=== PATIENT | female | born 1945 | race Caucasian/White ===

== ENCOUNTER 2020-06-20 09:39 | Outpatient (CLI) | payer MEDICARE, SELFPAY ==
--- NOTE | ~2020-06-20 | MM_ITS ---
EXAMINATION: MM screening [facility] BI w tommy HISTORY: Screening mammogram TECHNIQUE: Craniocaudal and mediolateral oblique 3-D tomosynthesis images were obtained and synthetic 2-D images were generated. CAD analysis was submitted and interpreted. COMPARISON: 03/16/2019, 02/10/2018, 01/15/2017 bilateral digital screening mammogram examinations BREAST PARENCHYMAL COMPOSITION: The breasts are heterogeneously dense, which may obscure small masses . FINDINGS: There are scattered bilateral benign calcifications. There is no evidence of suspicious mas s, calcification, or architectural distortion to suggest malignancy in either breast. There has been no suspicious interval change. IMPRESSION: 1. No mammographic evidence of malignancy. 2. Recommend routine screening mammography in one year. BI-RADS Category 2: Benign finding(s). Reviewed, dictated and finalized at location A. 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
== END 2020-06-20 09:40 | disposition home or self-care (01) ==
LOC: ANHIMG 09:43
PROVIDERS: Family Provider Family Medicine; PCP Family Medicine; Visit Provider Family Medicine
DX: Z12.31 Encounter for screening mammogram for malignant neoplasm of breast (principal)
CPT/HCPCS: 77063; 77067

== ENCOUNTER 2020-11-24 11:37 | Outpatient (CLI) | payer MEDICARE, SELFPAY ==
--- NOTE | ~2020-11-24 | MMUS_ITS ---
EXAMINATION: MM diagnostic kim RT w tommy, US breast RT limited HISTORY: Palpable breast abnormality TECHNIQUE: Additional 3-D tomosynthesis images of the right breast were performed and synthetic 2-D i mages were generated. CAD analysis was submitted and interpreted. High resolution Limited right breas t ultrasound was performed. COMPARISON: Comparison to multiple prior studies sequentially, with oldest reviewed study dated 05/2014. BREAST PARENCHYMAL COMPOSITION: Breast composed of scattered areas of fibroglandular density. FINDINGS: MAMMOGRAPHIC FINDINGS: There are no suspicious masses, calcifications or architectural distortion in the right breast to sug gest malignancy. ULTRASOUND: Limited right breast ultrasound: Normal heterogeneous echotexture without focal solid or cystic mass. IMPRESSION: 1. No evidence for malignancy in the right breast. 2. Routine yearly screening mammogram and regular clinical breast examination are recommended. BI-RADS Category 1: Negative Reviewed, dictated and finalized at location A. IMPRESSION: 1. No evidence for malignancy in the right breast. 2. Routine yearly screening mammogram and regular clinical breast examination a re recommended. BI-RADS Category 1: Negative
== END 2020-11-24 11:38 | disposition home or self-care (01) ==
LOC: ANHIMG 11:41
PROVIDERS: PCP Family Medicine; Visit Provider Family Medicine
DX: N63.0 Unspecified lump in unspecified breast (principal); R92.2 Inconclusive mammogram
CPT/HCPCS: 76642; 77061; 77065; G0279

== ENCOUNTER 2021-03-19 11:36 | Outpatient (CLI) | payer MEDICARE, SELFPAY ==
--- NOTE | ~2021-03-19 | XR_ITS ---
EXAMINATION: XR finger 1st LT min 2V DATE: 03/19/2021 12:03 INDICATION: Left thumb dislocation TECHNIQUE: Dorsal palmar, lateral and oblique views of the left first digit were obtained COMPARISON: None FINDINGS: Dorsal dislocation at the left first metacarpophalangeal joint. No evident fracture. Severe osteoarth ritis at the first carpometacarpal joint with cystic change at the base of the first metacarpal. Mode rate osteoarthritis at the triscaphe joint. Mild osteoarthritis at all of the visualized interphalang eal joints. IMPRESSION: 1. Dorsal dislocation of the left first metacarpophalangeal joint without evident fracture. 2. 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 Reviewed, dictated and finalized at location A. IMPRESSION: 1. Dorsal dislocation of the left first metacarpophalangeal joint without evide nt fracture. 2. 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
== END 2021-03-19 11:37 | disposition home or self-care (01) ==
LOC: ANHIMG 11:38
PROVIDERS: PCP Family Medicine; Visit Provider Physician Assistant
DX: M18.12 Unilateral primary osteoarthritis of first carpometacarpal joint, left hand (principal); S63.105A Unspecified dislocation of left thumb, initial encounter
CPT/HCPCS: 73140

== ENCOUNTER 2021-04-27 12:54 | Outpatient (CLI) | payer MEDICARE, SELFPAY ==
--- NOTE | ~2021-04-27 | MR_ITS ---
EXAMINATION: MR lumbar spine wo con DATE: 04/27/2021 14:31 INDICATION: Sciatica, unspecified side. TECHNIQUE: Magnetic resonance imaging (MRI) of the lumbar spine was performed without intravenous con trast. Sequences included sagittal T2-weighted FSE, sagittal T2-weighted FS FSE, sagittal T1-weighted FSE, and axial T2-weighted FSE. COMPARISON: None FINDINGS: There is 6 degrees levocurvature of lumbar spine. Vertebral body heights are normal. There is mildly decreased disc height at L2-L3 and L3-L4 and severely decreased disc height at L5-S1. The d istal spinal cord signal intensity is normal. The conus medullaris is at L1-L2. The following disc le vels are specifically discussed: L1-L2: The disc does not extend beyond the endplate margin. There is severe bilateral facet joint ost eoarthritis. There is no neural foraminal stenosis. There is no central canal stenosis. L2-L3: The disc is bulging. There is severe bilateral facet joint osteoarthritis. There is mild bilat eral neural foraminal stenosis. There is mild central canal stenosis. L3-L4: The disc is bulging and has an annular fissure. There is severe bilateral facet joint osteoart hritis. There is mild bilateral neural foraminal stenosis. There is mild central canal stenosis. L4-L5: The disc is bulging and has an annular fissure. There is severe bilateral facet joint osteoart hritis. There is mild bilateral neural foraminal stenosis. There is mild central canal stenosis. L5-S1: The disc is bulging and has an annular fissure. There is moderate bilateral facet joint osteoa rthritis. There is mild bilateral neural foraminal stenosis. There is no central canal stenosis. IMPRESSION: 1. Severe lumbar spondylosis. Reviewed, dictated and finalized at location A. NURSE
== END 2021-04-27 12:55 | disposition home or self-care (01) ==
LOC: ANHIMG 13:01
PROVIDERS: PCP Family Medicine; Visit Provider Family Medicine
DX: M47.817 Spondylosis without myelopathy or radiculopathy, lumbosacral region (principal); M48.07 Spinal stenosis, lumbosacral region
CPT/HCPCS: 72148

== ENCOUNTER 2021-09-10 09:08 | Outpatient (CLI) | payer MEDICARE, SELFPAY ==
--- NOTE | ~2021-09-10 | MM_ITS ---
EXAMINATION: MM screening [facility] BI w tommy HISTORY: Screening TECHNIQUE: Craniocaudal and mediolateral oblique 3-D tomosynthesis images were obtained and synthetic 2-D images were generated. CAD analysis was submitted and interpreted. COMPARISON: Comparison to multiple prior studies sequentially, with oldest reviewed study dated 10/2015. BREAST PARENCHYMAL COMPOSITION: There are scattered areas of fibroglandular density. FINDINGS: There is no evidence of suspicious mass, calcification, or architectural distortion to sugg est malignancy in either breast. There has been no suspicious interval change. IMPRESSION: 1. No mammographic evidence of malignancy. 2. Recommend routine screening mammography in one year. BI-RADS Category 1: Negative Reviewed, dictated and finalized at location A.
== END 2021-09-10 09:09 | disposition home or self-care (01) ==
LOC: ANHIMG 09:10
PROVIDERS: PCP Family Medicine; Visit Provider Family Medicine
DX: Z12.31 Encounter for screening mammogram for malignant neoplasm of breast (principal)
CPT/HCPCS: 77063; 77067

== ENCOUNTER 2022-09-07 14:52 | Emergency (ER) | payer MEDICARE, SELFPAY ==
--- NOTE | ~2022-09-07 | XR_ITS ---
EXAMINATION: XR knee RT 3V DATE: 09/07/2022 15:57 INDICATION: Right knee pain and swelling. TECHNIQUE: 3 views of right knee were obtained. COMPARISON: None. FINDINGS: Bone alignment is normal. No fracture. There is mild osteoarthritis of medial and patellofe moral compartments characterized by tiny osteophytes without joint space narrowing. No knee joint eff usion. IMPRESSION: 1. Mild right knee osteoarthritis. Reviewed, dictated and finalized at location A.
--- NOTE | 2022-09-07 15:01 | ED.LOWEXIN ---
HPI - Extremity Injury (Lower) General Chief Complaint: Extremity Injury, Lower Stated Complaint: rt knee/leg pain Time Seen by Provider: 09/07/22 15:39 Source: patient and RN notes reviewed Mode of arrival: ambulatory Limitations: no limitations History of Present Illness HPI Narrative: 77-year-old female presents with concern for right knee and leg pain. She reports her symptoms started a week and a half ago when she got out of bed. She denies any injury or trauma. She reports swelling to the knee and leg. She denies any posterior calf pain, redness, warmth. She reports pain is worse when she is walking on it. She denies tenderness. He denies history of problems with her knee MD complaint: other (knee pain) Related Data Home Medications Medication Instructions Recorded Confirmed calcium carbonate 600 mg-vitamin 1 tablet PO DAILY 05/08/19 08/03/22 D3 20 mcg (800 unit) chewable tablet (Caltrate 600 plus D) coQ10 (ubiquinol) 200 mg capsule 200 mg PO DAILY 05/08/19 08/03/22 (Active Q) multivit with 1 tablet PO DAILY 05/08/19 08/03/22 bitbsske-niyc-FK-lutein 8 mg iron-400 mcg-300 mcg tablet (Centrum Silver Women) ascorbic acid (vitamin C) 100 mg 100 mg PO DAILY 10/14/21 08/03/22 tablet magnesium 250 mg tablet 500 mg PO DAILY 10/14/21 08/03/22 fluorouracil 5 % topical cream 1 applic topical DIRECTED 09/07/22 09/07/22 Allergies Allergy/AdvReac Type Severity Reaction Status Date / Time cetirizine Allergy Unknown upset Verified 09/07/22 15:39 stomach erythromycin base Allergy Unknown stomach Verified 09/07/22 15:39 cramps Sulfa (Sulfonamide Allergy Unknown Skin Verified 09/07/22 15:39 Antibiotics) Reaction Review of Systems Review of Systems: CONSTITUTIONAL: Denies malaise, chills, sweats, or fever. SKIN: Denies rash or itching, open skin, laceration, abrasion, redness, warmth MUSCULOSKELETAL: Reports left knee pain right and swelling NEUROLOGIC: Denies numbness, weakness All systems reviewed & are unremarkable except as noted in HPI and below PMFSH Surgical History Surgical History H/O abdominoplasty H/O: hysterectomy Hx of tonsillectomy Family History Family History Grandparent Diabetes mellitus Sibling Family history of malignant neoplasm Mother Family history of Alzheimer's disease Family history of lung cancer Family history of malignant neoplasm of bone Father Malignant neoplasm of prostate Social History Social History Smoking status: Never smoker Alcohol intake: current Substance use: never Substance use type: does not use Comments At time of signature, agree with nursing past medical, surgical, social and family history. There is no relevant family history pertinent to the presenting complaint Exam Narrative: GENERAL: Well-appearing, well-nourished, and in no acute distress. HEAD: Normocephalic, atraumatic. EYES: PERRLA, conjunctivae clear NECK: Supple. CHEST: Speaks in full sentences. No respiratory distress. HEART: Regular rate and rhythm. Normal and equal peripheral pulses. EXTREMITIES: Right knee has normal strength and sensation, grossly normal range of motion. No edema or ecchymosis. 5/5 strength with knee flexion and extension. Normal sensation with sensitivity to light touch and pain. No point tenderness. No redness, warmth to the knee or posterior calf. No open wounds, no skin tenting, no devitalized tissue or atrophy, no trophic changes, no obvious deformity, alignment normal, nearby joints and structures intact. Distal pulses palpable and equal bilaterally, skin warm, dry, pink. Capillary refill less than 3 seconds. SKIN: Warm, dry, no rash. NEURO: Alert and oriented x3. PSYCH: Normal mood and affect Course Course Emergency Course: Patient is aware of diagnosis, und
[2022-09-07 15:03] VITALS: BP 128/80; PULSE 76; RESP 16; TEMP 36.6; O2SAT 100
== END 2022-09-07 16:12 | disposition home or self-care (01) ==
PROVIDERS: Emergency Provider Nurse Practitioner; PCP Emergency Medicine
DX: M17.11 Unilateral primary osteoarthritis, right knee (principal)
CPT/HCPCS: 73562; 99213; G0463

== ENCOUNTER 2022-09-30 15:16 | Outpatient (CLI) | payer MEDICARE, SELFPAY ==
--- NOTE | ~2022-09-30 | US_ITS ---
EXAMINATION: US venous doppler LE RT DATE: 09/30/2022 16:05 INDICATION: LEG PAIN . TECHNIQUE: Grayscale images without and with compression and Doppler images of the right lower extrem ity veins were obtained. COMPARISON: None FINDINGS: The right common femoral vein, profunda (deep) femoral vein, femoral vein, popliteal vein, peroneal v ein, posterior tibial veins, gastrocnemius vein, and greater saphenous vein are patent. IMPRESSION: 1. Patent right lower extremity veins. No evidence of deep venous thrombosis. Reviewed, dictated and finalized at location K.
== END 2022-09-30 15:17 | disposition home or self-care (01) ==
PROVIDERS: PCP Emergency Medicine; Visit Provider Plastic Surgery
DX: M79.661 Pain in right lower leg (principal)
CPT/HCPCS: 93971

== ENCOUNTER 2022-12-08 12:30 | Outpatient (RCR) | payer MEDICARE, SELFPAY ==
--- NOTE | 2022-10-15 10:39 | PTOPEVAL1 ---
Assessment and note entered by Fiordaliza Rutherford, PT Evaluation Information Assessment Status Evaluation Diagnosis R leg pain Onset August 2022 Subjective Information woke up one AM and pain in leg; went to [facility], xray- mild OA knee and osteophytes; doppler negative for DVT; pain is less- not as sharp as was; problems getting up from chair- have to use arms; is active, rides stationary bike and walks; Reported Pain Level Pain Score Self Report Additional Pain Score Comments pain range in the past week: 0-9/10; lateral R lower leg; achy and sharp pain increase with going down the stairs, getting into car and into bed- have to help leg, lift with hand and more leg sideways; more pain at end of day/ nighttime; sitting too long, sit at tall stool and leg dangles decrease pain with sit/rest, wearing compression socks, walking is taking extra strength tylenol PRN for pain; educated on use of ice PRN- has not been using; Assessment PT Clinical Summary Marianela has the diagnosis of R leg pain. Onset when awaken in the morning in August and went to [facility]; xray of knee reports mild OA and osteophytes, doppler negative for DVT. Her history includes 2 lumbar surgeries with R side sciatica. She reports this pain is different than her sciatica pain. She is active and the pain limits her ability of going down stairs, moving leg in/out car and more pain at the end of the day. With the evaluation: pain is increased with sitting knee flexion at end range of motion; slight tightness of R anterior hip/quad and has spasms and tenderness over R mid and mid-lateral gastroc. Skilled PT services are indicated for modalities to decrease pain and spasms, therapeutic exercises to stretch and strengthen R LE and education for HEP and pain control. Monitor her back, to assure that it is not radicular pain. Plan of Care Interventions Electrical Stimulation,Hot Pack/Cold Pack,Manual Therapy,Neuro Re-education,Patient/Caregiver Education,Therapeutic Activities,Therapeutic Exercise,Ultrasound,Other Other Interventions IASTM, taping PT Services Indicated
--- NOTE | 2022-11-12 13:42 | PTOPPROG ---
Assessment and note entered by Marielle White, PT, DPT Evaluation Information Assessment Status progress Diagnosis R leg pain Onset August 2022 Subjective Information Pt states overall she is feeling much better. She reports excellent compliance with her HEP. She states her pain is still there but has gotten a lot better towards the end of the day and with prolonged position. Exercise decreases her pain. Assessment PT Clinical Summary Genevieve presents to therapy today for her progress report following 7 visits of skilled therapy to treat her R leg pain. She continues to have decreased knee and hip strength sade, decreased functional mobility, and ambulates with a decreased gait speed. She reports good compliance with her HEP and is progressing slowly towards her goals. Continuation of skilled services are indicated to progress strength, mobility, and to return to PLOF. Plan of Care Interventions Electrical Stimulation,Hot Pack/Cold Pack,Manual Therapy,Neuro Re-education,Patient/Caregiver Educati,Therapeutic Activities,Therapeutic Exercise,Ultrasound,Other Other Interventions IASTM, taping PT Services Indicated Yes Treatment Frequency and 2x/wk for 4 weeks Duration These treatments will address the objective and functional deficits as defined above. The patient will be advanced safely and appropriately in order for the patient to progress towards his/her prior level of function. Additional exercises will be introduced and as well as a comprehensive home exercise program upon discharge, if needed, ?to ensure carryover of functional gains achieved in the clinic. This treatment plan has been reviewed and agreement upon by the patient.
--- NOTE | 2022-12-08 13:29 | PTOPDC ---
Assessment and note entered by Marielle White, PT, DPT Evaluation Information Assessment Status Discharge Diagnosis R leg pain Onset August 2022 Subjective Information Pt states she is doing really well. She states in the evening after she has been on her feet all day is when it starts to hurt the most. She states she feels like the more she moves, the better her leg pain is. Reported Pain Level Pain Score 0: Self Report Assessment PT Clinical Summary Genevieve presents to therapy today for her progress report following 11 visits of skilled therapy to treat her R leg pain. Today she demonstrates improved ankle and knee strength sade, she still demonstrates hip abduction and extension strength. She reports no functional limitations at this time. She reports good compliance with her HEP and is progressing well towards her therapy goals. She no longer requires skilled therapy services and will be discharged at this time with instructions to continue her HEP upon discharge. Plan of Care PT Services Indicated No
== END 2022-12-08 13:48 | disposition home or self-care (01) ==
LOC: ANHGOSHPT 12:30
PROVIDERS: PCP Emergency Medicine; Visit Provider Plastic Surgery
DX: M79.604 Pain in right leg (principal)
CPT/HCPCS: 97110; 97112; 97140; 97161; 97530

== ENCOUNTER 2022-12-14 14:56 | Outpatient (CLI) | payer MEDICARE, SELFPAY ==
[2022-12-14 20:56] LABS: Appearance Urine Turbid (Clear); Bacteria Urine 4+ /hpf; Bilirubin Urine Negative (Negative); Blood Urine 2+ (Negative); Color Urine Dark Yellow (Yellow); Glucose Urine UA Negative (Negative); Ketones Urine Negative (Negative); Leukocyte Esterase Ur 3+ LEU/UL (Negative); Need Manual Microscopic Reviewed; Nitrate Urine Positive (Negative); Protein Urine 3+ mg/dL (Negative); RBC Urine 21-50 /hpf (0-2); Specific Grav Ur 1.015 (1.001-1.035); Squamous Epithelial Cell Urine Few /hpf (Few); Urobilinogen Urine 0.2 mg/dL (<2.0); WBC Urine >100 /hpf; pH Urine 6.5 (5.0-9.0)
[2022-12-14 21:10] LABS: Add Urine Microscopic? YES
== END 2022-12-14 14:57 | disposition home or self-care (01) ==
LOC: ANHGOSHLAB 14:57
PROVIDERS: PCP Emergency Medicine; Visit Provider Emergency Medicine
DX: N39.0 Urinary tract infection, site not specified (principal)
CPT/HCPCS: 81001; 87077; 87086; 87186

== ENCOUNTER 2022-12-24 10:45 | Outpatient (CLI) | payer MEDICARE, SELFPAY ==
[2022-12-24 18:18] LABS: Alanine Aminotransferase 21 U/L (6-35); Albumin Level 3.8 g/dL (3.5-5.1); Alkaline Phosphatase 75 U/L (38-126); Anion Gap 2 mmol/L (8-16); Aspartate Amino Transferase 39 U/L (14-36); Bilirubin,Total 0.5 mg/dL (0.2-1.3); Blood Urea Nitrogen 20 mg/dL (7-17); Calcium 8.9 mg/dL (8.4-10.2); Carbon Dioxide 29 mmol/L (22-30); Chloride 105 mmol/L (98-107); Cholesterol 144 mg/dL (0-200); Estimated Glomerular Filt Rate > 60; Glucose 84 mg/dL (65-110); HDL Direct 43 mg/dL; Potassium 3.9 mmol/L (3.4-5.0); Sodium 136 mmol/L (137-145); Triglycerides 104 mg/dL (<150)
[2022-12-24 18:22] LABS: Basophils Percent Auto 0.2 % (0.2-1.2); Eosinophils Percent Auto 0.2 % (0-4.4); Hematocrit 36.8 % (37.0-47.0); Hemoglobin 12.4 g/dL (12.0-15.0); Immature Granulocyte Absolute 0.05 K/mm3 (0.00-0.031); Immature Granulocyte Percent A 0.5 % (0-0.5); Lymphocytes Absolute Auto 1.18 K/mm3 (0.9-3.2); Mean Corpuscular HGB Conc 33.7 g/dl (32-36); Mean Corpuscular Hemoglobin 32.9 pg (26-34); Mean Corpuscular Volume 97.6 fl (80-100); Mean Platelet Volume 10.2 fl (7.4-10.4); Monocytes Absolute Auto 0.9 K/mm3 (0.1-0.6); Monocytes Percent Auto 8.6 % (2.6-8.5); Neutrophils Absolute Auto 7.7 K/mm3 (1.3-6.7); Neutrophils Percent Auto 78.5 % (45.5-73.1); Platelet Count Result 256 k/mm3 (150-375); Red Blood Count 3.77 M/mm3 (4.2-5.4); Red Cell Distribution Width 12.3 % (11.5-14.5); White Blood Count 9.9 K/mm3 (4.5-10.0)
[2022-12-24 18:29] LABS: LDL Cholesterol Direct 63 mg/dL
[2022-12-24 18:39] LABS: Appearance Urine Clear (Clear); Bacteria Urine None Seen /hpf; Bilirubin Urine Negative (Negative); Blood Urine Negative (Negative); Color Urine Yellow (Yellow); Glucose Urine UA Negative (Negative); Ketones Urine Negative (Negative); Leukocyte Esterase Ur Trace LEU/UL (Negative); Nitrate Urine Negative (Negative); Non Pathogenic Casts 0-2; Protein Urine Negative (Negative); Specific Grav Ur 1.013 (1.001-1.035); Squamous Epithelial Cell Urine Occasional /hpf (Few); Urobilinogen Urine 0.2 mg/dL (<2.0)
[2022-12-24 18:55] LABS: Add Urine Microscopic? YES
== END 2022-12-24 10:46 | disposition home or self-care (01) ==
LOC: ANHGOSHLAB 10:46
PROVIDERS: PCP Emergency Medicine; Visit Provider Emergency Medicine
DX: N39.0 Urinary tract infection, site not specified (principal); E78.2 Mixed hyperlipidemia
CPT/HCPCS: 36415; 80053; 80061; 81001; 85025; 87086

== ENCOUNTER 2023-01-24 15:15 | Outpatient (RCR) | payer MEDICARE, SELFPAY ==
--- NOTE | 2022-12-27 17:08 | OPREHPOC ---
Outpatient Therapy Plan of Care This is a Multidisciplinary Plan of Care that may contain components documented by all disciplines (PT, OT, and ST.) PT Problem 1 PT Problem #1 Knowledge Deficit PT Goal 1 Goal Pt to be IND with issued HEP PT Problem 2 PT Problem #2 Pain PT Goal 1 Goal Pt to report knee pain no greater than 3/10 in the last week. PT Goal 2 Goal Pt to report 75% improvement in overall symptoms. PT Problem 3 PT Problem #3 Impaired Range of Motion PT Goal 1 Goal Pt to increase active knee flexion to 115 deg Target Visit 8 PT Goal 2 Goal Pt to demonstrate full R knee extension actively. Target Visit 8 PT Problem 4 PT Problem #4 Impaired Functional Mobil PT Goal 1 Goal Pt to demonstrate no deviations with stair navigation Target Visit 8
--- NOTE | 2022-12-27 17:08 | PTOPEVAL1 ---
Assessment and note entered by Marielle White, PT, DPT Evaluation Information Assessment Status Evaluation Diagnosis R knee pain Subjective Information Pt completed a round of therapy 2 weeks ago and was discharged d/t meeting all of her therapy goals. Pt states she started taking a medication ( Levaquin) and her knee instantly started to hurt again. She states the medication is affecting her tendons directly. She states she is not currently on the Levaquin, and just finished a steroid pack today. She Reported Pain Level Pain Score 8: Self Report Assessment PT Clinical Summary Genevieve presents to therapy today for her initial evaluation with a diagnosis of R knee pain which has been attributed to a systemic reaction from a medication. Today she demonstrates edema, decreased ROM, and decreased strength in the R knee when compared to the L. She demonstrates tenderness to palpation generally throughout her BLE. Skilled physical therapy services are indicated to address the deficits noted above, to manage pain, and to return to PLOF. Plan of Care Interventions Gait Training,Hot Pack/Cold Pack,Manual Therapy, Neuro Re-education,Patient/Caregiver Educati, Therapeutic Activities,Therapeutic Exercise, Ultrasound PT Services Indicated Yes Treatment Frequency and 2x/wk for 8 visits Duration These treatments will address the objective and functional deficits as defined above. The patient will be advanced safely and appropriately in order for the patient to progress towards his/her prior level of function. Additional exercises will be introduced and as well as a comprehensive home exercise program upon discharge, if needed, ?to ensure carryover of functional gains achieved in the clinic. This treatment plan has been reviewed and agreement upon by the patient.
--- NOTE | 2023-01-24 16:05 | PTOPPROG ---
Assessment and note entered by Marielle White, PT, DPT Evaluation Information Assessment Status Progress Diagnosis R knee pain Subjective Information Pt states overall her knee still hurts. She states her knee has gotten better but she still continues to have issued when going down stairs and getting in/out of the car. Pt states she has pain Assessment PT Clinical Summary Genevieve presents to therapy today for her progress report following 8 visits of skilled therapy to treat her diagnosis of R knee pain which she attributes to a systemic reaction from a medication. Today she demonstrates improved pain reports, improved ROM, and improved strength. She continues to have generalized tenderness to palpation throughout her RLE. She report pain during stairs and getting in/out of the car. It was recommended that she continue her HEP for a month and then follow up. Pt agreeable. Plan of Care Interventions Gait Training,Hot Pack/Cold Pack,Manual Therapy, Neuro Re-education,Patient/Caregiver Educati, Therapeutic Activities,Therapeutic Exercise, Ultrasound PT Services Indicated Yes Treatment Frequency and to follow up in 1 month of needed Duration These treatments will address the objective and functional deficits as defined above. The patient will be advanced safely and appropriately in order for the patient to progress towards his/her prior level of function. Additional exercises will be introduced and as well as a comprehensive home exercise program upon discharge, if needed, ?to ensure carryover of functional gains achieved in the clinic. This treatment plan has been reviewed and agreement upon by the patient.
--- NOTE | 2023-02-22 08:49 | PTOPDC ---
Assessment and note entered by Marielle White, PT, DPT Evaluation Information Assessment Status Discharge - Pt Not Present Diagnosis R knee pain Subjective Information Called and spoke with patient, she states her knee is doing better and she does not need to continue therapy at this time. Assessment PT Clinical Summary Genevieve completed 9 visits of skilled therapy from 12/27/22 to 01/24/23. Per pt she can be discharged at this time. Plan of Care PT Services Indicated No
== END 2023-02-22 10:31 | disposition home or self-care (01) ==
LOC: ANHGOSHPT 15:15
PROVIDERS: PCP Emergency Medicine; Visit Provider Emergency Medicine
DX: M76.891 Other specified enthesopathies of right lower limb, excluding foot (principal)
CPT/HCPCS: 97110; 97112; 97140; 97161; 97530

== ENCOUNTER 2023-02-01 19:27 | Outpatient (NON) | payer MEDICARE, SELFPAY | END 2023-02-01 19:28 | disposition home or self-care (01) | LOC: ANHGOSHLAB 19:30 | PROVIDERS: PCP Emergency Medicine; Visit Provider Emergency Medicine | DX: R30.0 Dysuria (principal); N39.0 Urinary tract infection, site not specified | CPT/HCPCS: 87086; 87088 ==

== ENCOUNTER 2023-02-15 10:07 | Outpatient (RCR) | payer MEDICARE, SELFPAY ==
--- NOTE | 2023-02-15 11:09 | OPREHPOC ---
Outpatient Therapy Plan of Care This is a Multidisciplinary Plan of Care that may contain components documented by all disciplines (PT, OT, and ST.) PT Problem 1 PT Problem #1 Knowledge Deficit PT Goal 1 Goal 1. Patient will perform independent HEP Target Visit 5 PT Problem 2 PT Problem #2 Pain PT Goal 1 Goal 1. Patient will report no pain with voiding for 1 week Target Visit 5 PT Problem 3 PT Problem #3 Impaired Strength PT Goal 1 Goal 1. Patient will demo 3/5 pelvic floor strength to decrease pelvic pressure 2. Patient will demo 10 second endurance to decrease pelvic pressure Target Visit 5 PT Problem 4 PT Problem #4 Impaired Functional ADLs PT Goal 1 Goal 1. Patient will void no more than 10 times in a 24 hour period Target Visit 5
--- NOTE | 2023-02-15 11:09 | PTOPEVAL1 ---
Assessment and note entered by Billie Mauricio DPT Evaluation Information Assessment Status Evaluation Subjective Information Pt is presenting to skilled therapy with a diagnosis of pelvic organ prolapse. She also reports multiple UTI's since June and reports feeling a lot of urgency, also had a poor reaction to an antibiotic. States she has had her urine tested multiple times, has recently had it come back negative but reports it was very cloudy. Voids at least 10 times a day and at least another 4 times at night. Denies urine leakage. Can hold urge very short amounts of time at night, 5-10 minutes during the day. Feels a pain or burning sensation when voiding, 5/10 highest and lowest 0/ 10. Also reports feeling a pressure. BM usually multiple times a day, usually no pain. Pt has been 1 time with vaginal delivery and significant tearing. Partial hysterectomy at age 32. No other b/b issues. Also reports she wears a pad very frequently just in case due to loose stools. Patient goal: decrease the frequency of urination and burning sensation Reported Pain Level Pain Score 0: Self Report Assessment PT Clinical Summary The patient is presenting to skilled therapy with a history of frequent UTI's, a diagnosis of pelvic organ prolapse, and reports pain with urination and pelvic pressure. She demonstrates decreased pelvic floor strength and endurance and decreased core strength which are presenting to her symptoms and frequency of urination. She will benefit from therapy to address these impairments and return to prior level of function, as well as educate in urge suppression strategies to decrease frequency. Plan of Care Interventions Manual Therapy,Neuro Re-education,Patient/ Caregiver Education,Therapeutic Activities, Therapeutic Exercise PT Services Indicated Yes Treatment Frequency and 1 time a week for 4 weeks Duration These treatments will address the objective and functional deficits as defined above. The patient will be advanced safely and appropriately in order for the patient to progress towards his/her prior level of function. Additional exercises will be introduced and as well as a comprehensive home exercise program upon discharge, if needed, ?to ensure carryover of functional gains achieved in the clinic. This treatment plan has been reviewed and agreement upon by the patient.
--- NOTE | 2023-02-21 11:58 | PCPTNOTE ---
Patient called to cancel appointment due to a possible UTI and needing to see her urologist.
--- NOTE | 2023-03-28 09:43 | PTOPDC ---
Assessment and note entered by RADHA CaT Evaluation Information Assessment Status Discharge - Pt Not Present Subjective Information - Assessment PT Clinical Summary Patient has not attended therapy in over 1 month due to other health issues- discharging from therapy at this time. Plan of Care PT Services Indicated No
== END 2023-03-28 11:37 | disposition home or self-care (01) ==
LOC: ANHGOSHPT 10:07
PROVIDERS: PCP Emergency Medicine; Visit Provider Emergency Medicine
DX: N81.4 Uterovaginal prolapse, unspecified (principal)
CPT/HCPCS: 97112; 97162; 97530

== ENCOUNTER 2023-02-15 14:15 | Emergency (ER) | payer MEDICARE, SELFPAY ==
[2023-02-15 14:57] VITALS: BP 141/59; PULSE 84; RESP 16; TEMP 36.3; O2SAT 98
[2023-02-15 15:33] LABS: Basophils Percent Auto 0.2 % (0.2-1.2); Eosinophils Absolute Auto 0.1 K/mm3 (0-0.3); Eosinophils Percent Auto 0.9 % (0-4.4); Hematocrit 38.5 % (37.0-47.0); Hemoglobin 12.6 g/dL (12.0-15.0); Immature Granulocyte Absolute 0.04 K/mm3 (0.00-0.031); Immature Granulocyte Percent A 0.5 % (0-0.5); Lymphocytes Absolute Auto 1.04 K/mm3 (0.9-3.2); Lymphocytes Percent Auto 12.3 % (18.3-44.2); Mean Corpuscular HGB Conc 32.7 g/dl (32-36); Mean Corpuscular Hemoglobin 31.7 pg (26-34); Mean Platelet Volume 9.7 fl (7.4-10.4); Monocytes Absolute Auto 0.6 K/mm3 (0.1-0.6); Monocytes Percent Auto 7.1 % (2.6-8.5); Neutrophils Absolute Auto 6.7 K/mm3 (1.3-6.7); Platelet Count Result 245 k/mm3 (150-375); Red Blood Count 3.97 M/mm3 (4.2-5.4); Red Cell Distribution Width 12.3 % (11.5-14.5); White Blood Count 8.5 K/mm3 (4.5-10.0)
[2023-02-15 15:46] LABS: Alanine Aminotransferase 23 U/L (6-35); Albumin Level 4.1 g/dL (3.5-5.1); Alkaline Phosphatase 77 U/L (38-126); Anion Gap 7 mmol/L (8-16); Aspartate Amino Transferase 36 U/L (14-36); Bilirubin,Total 0.7 mg/dL (0.2-1.3); Blood Urea Nitrogen 17 mg/dL (7-17); Calcium 9.2 mg/dL (8.4-10.2); Carbon Dioxide 27 mmol/L (22-30); Chloride 106 mmol/L (98-107); Estimated CRCL calculation 53 ml/min; Estimated Glomerular Filt Rate > 60; Glucose 125 mg/dL (65-110); Potassium 3.9 mmol/L (3.4-5.0); Sodium 140 mmol/L (137-145)
[2023-02-15 15:49] LABS: Appearance Urine Turbid (Clear); Bilirubin Urine Negative (Negative); Blood Urine 2+ (Negative); Color Urine Yellow (Yellow); Glucose Urine UA Negative (Negative); Ketones Urine Negative (Negative); Leukocyte Esterase Ur 3+ LEU/UL (Negative); Nitrate Urine Positive (Negative); Protein Urine 1+ mg/dL (Negative); Specific Grav Ur 1.012 (1.001-1.035); Urobilinogen Urine 0.2 mg/dL (<2.0); pH Urine 6.5 (5.0-9.0)
[2023-02-15 16:02] LABS: Add Urine Microscopic? YES; Squamous Epithelial Cell Urine Few /hpf (Few); WBC Urine >100 /hpf
[2023-02-15 16:03] LABS: Bacteria Urine 4+ /hpf
--- NOTE | 2023-02-15 20:00 | ED.GENADULT ---
HPI - General Adult General Chief complaint: Recheck/Abnormal Lab/Rx Stated complaint: PSEUDOMONAS IN URINE Time Seen by Provider: 02/15/23 19:44 History of Present Illness HPI narrative: Patient presents the emergency department with persistent and recurrent urinary tract infections. She has had dysuria and frequency. She is followed by urology. She has been on 2 courses of Macrobid and Levaquin. The Levaquin gives her tendinitis so she cannot take it anymore. She denies fevers chills. She was told by her urologist that she will likely need IV antibiotics due to Pseudomonas resistance. Patient is very pleasant and exam is benign Related Data Home Medications Medication Instructions Recorded Confirmed calcium carbonate 600 mg-vitamin 1 tablet PO DAILY 05/08/19 02/01/23 D3 20 mcg (800 unit) chewable tablet (Caltrate 600 plus D) coQ10 (ubiquinol) 200 mg capsule 200 mg PO DAILY 05/08/19 02/01/23 (Active Q) qolkoull-hagt-sffp 8 mg-folic 400 1 tablet PO DAILY 05/08/19 02/01/23 mcg-K 50 mcg-lutein 300 mcg tablet (Centrum Silver Women) ascorbic acid (vitamin C) 100 mg 100 mg PO DAILY 10/14/21 02/01/23 tablet magnesium 250 mg tablet 500 mg PO DAILY 10/14/21 02/01/23 Allergies Allergy/AdvReac Type Severity Reaction Status Date / Time erythromycin base Allergy Unknown stomach Verified 02/10/23 11:49 cramps Sulfa (Sulfonamide Allergy Unknown Skin Verified 02/10/23 11:49 Antibiotics) Reaction levofloxacin AdvReac Severe tendinitis Verified 02/10/23 11:49 Review of Systems Review of Systems: Review of systems negative except what is documented in the [facility] Surgical History Surgical History H/O abdominoplasty H/O: hysterectomy Hx of tonsillectomy Family History Family History Grandparent Diabetes mellitus Sibling Family history of malignant neoplasm Mother Family history of Alzheimer's disease Family history of lung cancer Family history of malignant neoplasm of bone Father Malignant neoplasm of prostate Social History Social History (Reviewed 02/10/23 @ 11:50 by BIJU SantiagoSvetlana Smoking status: Never smoker Alcohol intake: current Substance use: never Substance use type: does not use Lack of Transportation: No Lack of Food: Never True Current Housing: I Have Housing Concerned About Future Housing: No Difficulty Paying Gas/Electric Bills: No Difficulty Paying for Meds: No Currently Unemployed: No Education: Master's Degree or Higher Exam Narrative: GENERAL: Well-appearing, well-nourished, and in no acute distress. HEAD: Normocephalic, atraumatic. EYES: PERRLA and EOMI. ENT: Nares clear, no rhinorrhea or epistaxis. Mucous membranes moist. NECK: Supple. CHEST: Clear to auscultation. No respiratory distress. HEART: Regular rate and rhythm. ABDOMEN: Soft, nontender, nondistended. EXTREMITIES: Normal range of motion. No edema. SKIN: Warm, dry, no rash. NEURO: No focal deficits. Alert and oriented x3. PSYCH: Normal mood and affect. Course Course Emergency Course: Consulted pharmacist for antibiotic recommendations Vital Signs Vital signs: Vital Signs Temperature 36.3 C L 02/15/23 14:57 Pulse Rate 84 02/15/23 14:57 Respiratory Rate 16 02/15/23 14:57 Blood Pressure 141/59 H 02/15/23 14:57 Pulse Oximetry 98 02/15/23 14:57 Oxygen Delivery Room Air 02/15/23 14:57 Temperature 36.3 C L 02/15/23 14:57 Pulse Rate 84 02/15/23 14:57 Respiratory Rate 16 02/15/23 14:57 Blood Pressure 141/59 H 02/15/23 14:57 Pulse Oximetry 98 02/15/23 14:57 Oxygen Delivery Room Air 02/15/23 14:57 Medical Decision Making MDM Narrative Medical decision making narrative: I spoke to Dr. Gallegos on-call for urology. He states that Dr. Lowry is not one of the urologists. He recommends the patient follo
== END 2023-02-15 20:30 | disposition home or self-care (01) ==
LOC: ANHED 20:55
PROVIDERS: Emergency Medicine; Emergency Provider Emergency Medicine; PCP Emergency Medicine
DX: N39.0 Urinary tract infection, site not specified (principal)
CPT/HCPCS: 36415; 80053; 81001; 85025; 87077; 87086; 87186; 99283

== ENCOUNTER 2023-02-21 14:18 | Observation (INO) | payer MEDICARE, SELFPAY ==
--- NOTE | ~2023-02-21 | US_ITS ---
EXAMINATION: US renal BI DATE: 02/22/2023 11:34 INDICATION: Chronic urinary tract infection. TECHNIQUE: Multiple ultrasound grayscale images of the kidneys were obtained. COMPARISON: Lumbar spine MRI 04/27/2021 FINDINGS: The right kidney measures 10.0 x 3.4 x 5.0 cm. The left kidney measures 11.2 x 4.9 x 4.4 cm. The kidn eys demonstrate normal parenchymal echogenicity. There is no hydronephrosis. The bladder demonstrates a diverticulum on the right. IMPRESSION: 1. Normal kidneys. No hydronephrosis. 2. Bladder diverticulum. Reviewed, dictated and finalized at location A.
[2023-02-21 14:55] VITALS: BP 141/62; PULSE 89; RESP 18; TEMP 36.7; O2SAT 99
[2023-02-21 17:22] LABS: Basophils Percent Auto 0.3 % (0.2-1.2); Eosinophils Absolute Auto 0.1 K/mm3 (0-0.3); Eosinophils Percent Auto 1.6 % (0-4.4); Hematocrit 39.4 % (37.0-47.0); Hemoglobin 12.8 g/dL (12.0-15.0); Immature Granulocyte Absolute 0.02 K/mm3 (0.00-0.031); Immature Granulocyte Percent A 0.3 % (0-0.5); Lymphocytes Absolute Auto 1.12 K/mm3 (0.9-3.2); Lymphocytes Percent Auto 15.4 % (18.3-44.2); Mean Corpuscular HGB Conc 32.5 g/dl (32-36); Mean Corpuscular Hemoglobin 31.7 pg (26-34); Mean Corpuscular Volume 97.5 fl (80-100); Mean Platelet Volume 9.7 fl (7.4-10.4); Monocytes Absolute Auto 0.7 K/mm3 (0.1-0.6); Monocytes Percent Auto 9.2 % (2.6-8.5); Neutrophils Absolute Auto 5.3 K/mm3 (1.3-6.7); Neutrophils Percent Auto 73.2 % (45.5-73.1); Platelet Count Result 261 k/mm3 (150-375); Red Blood Count 4.04 M/mm3 (4.2-5.4); Red Cell Distribution Width 12.6 % (11.5-14.5); White Blood Count 7.3 K/mm3 (4.5-10.0)
[2023-02-21 17:32] LABS: Alanine Aminotransferase 31 U/L (6-35); Albumin Level 4.4 g/dL (3.5-5.1); Alkaline Phosphatase 89 U/L (38-126); Anion Gap 9 mmol/L (8-16); Aspartate Amino Transferase 43 U/L (14-36); Bilirubin,Total 0.7 mg/dL (0.2-1.3); Blood Urea Nitrogen 16 mg/dL (7-17); Calcium 9.5 mg/dL (8.4-10.2); Carbon Dioxide 27 mmol/L (22-30); Chloride 103 mmol/L (98-107); Estimated CRCL calculation 53 ml/min; Estimated Glomerular Filt Rate > 60; Glucose 86 mg/dL (65-110); Sodium 139 mmol/L (137-145)
[2023-02-21 17:58] LABS: Appearance Urine Turbid (Clear); Bacteria Urine 4+ /hpf; Bilirubin Urine Negative (Negative); Blood Urine 2+ (Negative); Color Urine Dark Yellow (Yellow); Glucose Urine UA Negative (Negative); Ketones Urine 1+ mg/dL (Negative); Leukocyte Esterase Ur 3+ LEU/UL (Negative); Need Manual Microscopic Reviewed; Nitrate Urine Positive (Negative); Protein Urine 2+ mg/dL (Negative); Specific Grav Ur 1.014 (1.001-1.035); Squamous Epithelial Cell Urine Few /hpf (Few); WBC Urine >100 /hpf
[2023-02-21 17:59] LABS: Add Urine Microscopic? YES
--- NOTE | 2023-02-21 18:06 | ED.GENADULT ---
HPI - General Adult General Chief complaint: Unspecified <Tere Makrs PA-C - Last Filed: 02/21/23 22:17> Stated complaint: Iv antibiotics <Tere Marks PA-C - Last Filed: 02/21/23 22:17> Time Seen by Provider: 02/21/23 17:01 <Tere Marks PA-C - Last Filed: 02/21/23 22:17> Source: patient and old records reviewed <Tere Marks PA-C - Last Filed: 02/21/23 22:17> Mode of arrival: ambulatory <LAWRENCE Hoffman Last Filed: 02/21/23 22:17> Limitations: no limitations <Tere Marks PA-C - Last Filed: 02/21/23 22:17> History of Present Illness HPI narrative: Patient is a 77-year-old female who presents to the ED with report of Pseudomonas urinary tract infection. Patient reports she has had issues with frequent urinary tract infections that have shown cultures to be positive for Pseudomonas infection. She has been on levofloxacin in the past and developed tendinitis with antibiotic administration. She states she is unable to tolerate this antibiotic any further. Over the last week, she has had increased dysuria, urinary frequency, noting she is waking up every hour at night to use the restroom. She was told she may need a PICC line at some point for IV antibiotics to treat her infections. Patient was seen in the ED last week but thought to be stable for discharge home. Culture from that time shows Pseudomonas infection, sensitive to several IV antibiotics, Cipro/Levaquin the only oral medications. Patient was then told to return to the ED. She currently follows with Dr. Che and Dr. Howell with urology. She denies abdominal or back pain, nausea, vomiting, fevers. <LAWRENCE Hoffman Last Filed: 02/21/23 22:17> Related Data Home medications: Home Medications Medication Instructions Recorded Confirmed calcium carbonate 600 mg-vitamin 1 tablet PO DAILY 05/08/19 02/21/23 D3 20 mcg (800 unit) chewable tablet (Caltrate 600 plus D) coQ10 (ubiquinol) 200 mg capsule 200 mg PO DAILY 05/08/19 02/21/23 (Active Q) muyrygrp-foeg-woqk 8 mg-folic 400 1 tablet PO DAILY 05/08/19 02/21/23 mcg-K 50 mcg-lutein 300 mcg tablet (Centrum Silver Women) magnesium 250 mg tablet 500 mg PO DAILY 10/14/21 02/21/23 <Tere Marks PA-C - Last Filed: 02/21/23 22:17> Allergies/adverse reactions: Allergies Allergy/AdvReac Type Severity Reaction Status Date / Time erythromycin base Allergy Unknown stomach Verified 02/10/23 11:49 cramps Sulfa (Sulfonamide Allergy Unknown Skin Verified 02/10/23 11:49 Antibiotics) Reaction levofloxacin AdvReac Severe tendinitis Verified 02/10/23 11:49 <Tere Marks PA-C - Last Filed: 02/21/23 22:17> Review of Systems Review of Systems: CONSTITUTIONAL: Denies fever, chills, or sweats. CARDIOVASCULAR: Denies chest pain. RESPIRATORY: Denies dyspnea. GASTROINTESTINAL: Denies abdominal pain, nausea, vomiting. GENITOURINARY: See HPI. SKIN: Denies rash or itching. MUSCULOSKELETAL: Denies back pain, joint pain, or myalgia. <Tere Marks PA-C - Last Filed: 02/21/23 22:17> All systems reviewed & are unremarkable except as noted in HPI and below <Tere Marks PA-C - Last Filed: 02/21/23 22:17> [facility] Past Medical History Medical History: Medical History (Updated 02/22/23 @ 04:23 by Claribel Long DO) Actinic keratoses Cancer of the skin, basal cell Chronic rhinosinusitis Cystocele with prolapse Eczema Gastro-esophageal reflux disease without esophagitis Lumbar spondylosis Mixed hyperlipidemia Neuropathy of both feet Recurrent UTI Restless legs syndrome Sciatica Seborrheic keratosis <Tere Marks PA-C - Last Filed: 02/21/23 22:17> Surgical History Surgical History: Surgical History (Updated 02/22/23 @ 04:23 by Claribel Long DO) H/O abdominoplasty H/O: hysterectomy Partial History of appendectomy History
[2023-02-21] MEDS: MEROPENEM 1 GM/NS 100 ML 1 GM/100 ML BAG IVPB (20:02)
[2023-02-21 21:35] VITALS: BMI 28.0
--- NOTE | 2023-02-21 21:41 | ADMGEN ---
This patient, Genevieve Doss, was admitted to 3 [facility] Surg Room 316-02 @20:40. Patient/family oriented to hospital policies and general routines including ID bracelet, bed and alarms, visiting hours, pain management, procedures, bathroom and other care routines, personal items, smoking policy, room service/diet, and visiting hours. Information on how to activate the Rapid Response Team has been discussed. Patient/Family are encouraged to report perceived risks to care and to ask questions if they do not understand what they are told or what they should do.
[2023-02-21 22:00] VITALS: BP 144/71; PULSE 73; RESP 20; TEMP 35.7; O2SAT 100
[2023-02-22] MEDS: MEROPENEM 1 GM/NS 100 ML 1 GM/100 ML BAG IVPB ×3 (02:15→18:29)
--- NOTE | 2023-02-22 04:10 | PM.IMHP ---
H&P: HPI History of Present Illness Date/Time: 02/22/23 04:10 Chief Complaint: UTI not able to be treated with oral antibiotics Narrative: 77-year-old female with a past medical history hyperlipidemia, peripheral neuropathy and frequent urinary tract infections who presented to the ER from Urology office due to UTI. The patient had a history of tendinitis with Levaquin and does not tolerate fluoroquinolones as such. She was subsequently admitted to the hospital for IV antibiotic therapy. She was evaluated in her primary care physician's office on 02/10/2023 after finishing a 7 day course of Macrobid. Her urine culture at that time demonstrated greater than 100,000 colonies of E coli and Pseudomonas. Despite treatment she has been having increasing frequency of urination, dysuria, and urgency. She had repeat urine culture on the performed in the ER which grew out 100,000 colonies of Pseudomonas aeruginosa. It was matute sensitive to multiple antibiotics the patient has a history of intolerance to fluoroquinolones and was sent to the ER for IV antibiotics. The patient was started on meropenem in the ER. She reports of sensation of fullness in her lower pelvis and feels if it bladder is going to fall out due to the pressure. She does have increased dysuria and chronic frequency. She is supposed to start on pelvic therapy this week to help with her urinary symptoms. The patient reports she has had recurrent tendinitis of her right lower extremity each time she has been placed on Levaquin. She would rather avoid using fluoroquinolones again. Review of Systems Review of Systems: 12 systems were reviewed with pertinent positives and negatives per HPI. Except as documented in the HPI, all other systems were reviewed and are negative. [facility] Past Medical History Medical History (Updated 02/22/23 @ 04:23 by Claribel Long DO) Actinic keratoses Cancer of the skin, basal cell Chronic rhinosinusitis Cystocele with prolapse Eczema Gastro-esophageal reflux disease without esophagitis Lumbar spondylosis Mixed hyperlipidemia Neuropathy of both feet Recurrent UTI Restless legs syndrome Sciatica Seborrheic keratosis Surgical History Surgical History (Updated 02/22/23 @ 04:23 by Claribel Long DO) H/O abdominoplasty H/O: hysterectomy Partial History of appendectomy History of lumbar fusion 2012 and 2017 History of right cataract extraction Hx of tonsillectomy Family History Family History Grandparent Diabetes mellitus Sibling Family history of malignant neoplasm Mother Family history of Alzheimer's disease Family history of lung cancer Family history of malignant neoplasm of bone Father Malignant neoplasm of prostate Social History Social History (Updated 02/22/23 @ 07:26 by Claribel Long DO) Social History: She and her have been for 54 years. They have 1 son. She occasionally drinks a glass of wine. She is a lifelong nonsmoker. She ambulates without assistance and is independent activities of daily living. Code status: DNR (per EMR) Smoking status: Never smoker Alcohol intake: current Substance use: never Substance use type: does not use Lack of Transportation: No Lack of Food: Never True Current Housing: I Have Housing Concerned About Future Housing: No Difficulty Paying Gas/Electric Bills: No Difficulty Paying for Meds: No Currently Unemployed: No Education: Master's Degree or Higher Difficulty w/ Childcare or Family Care: No Spiritual care concerns: No ([place]) Meds Home Medications and Allergies Home Medications Medication Instructions Recorded Confirmed Type calcium carbonate 600 mg-vitamin 1 tablet PO DAILY 05/08/19 02/21/23 History D3 20 mcg (800 unit) chewable tablet (Caltrate 600 plus D) coQ10 (ubiquinol) 200 mg capsule 200 mg PO DAILY 05/08/19
[2023-02-22 06:00] VITALS: BP 107/49; PULSE 73; RESP 18; TEMP 35.8; O2SAT 97
[2023-02-22] MEDS: THERAPEUTIC MULTIVITAMINS/MINERALS TAB (*BKC) 1 TABLET PO (08:21)
[2023-02-22] MEDS: MAGNESIUM OXIDE 400 MG TABLET PO (08:21)
--- NOTE | 2023-02-22 09:29 | PM.IMPN ---
Progress Note: A&P Assessment and Plan (1) Urinary tract infection due to Pseudomonas aeruginosa: Code(s): N39.0 - Urinary tract infection, site not specified; B96.5 - Pseudomonas (aeruginosa) (mallei) (pseudomallei) as the cause of diseases classified elsewhere Status: Acute Assessment and Plan: Recurrent UTI with symptoms of dysuria, frequency, and urgency. Past concerns for prolapse cystocele contributing vs interstitial cystisis. Having impaired emptying resulting in retention Active symptoms of infection U/A is ambiguous for infection. Recent culture from 02/15 was growing pseudomonas susceptible to fluoroquinolones however patient has had problems with tendinitis in the past with these agents. On treatment now with IV meropenem Vital signs reviewed and are stable Labs are essentially normal Urology consulted and recommendations are appreciated Placed a carmen this morning for recurrent retention---patient asked to wait and see what urology recommended. Add Pyridium to see if this helps with her symptoms. It appears that her PCP had ordered amitriptyline at her last visit for interstitial cystitis. Midline ordered Care coordination consulted for assistance with home health and home antibiotic therapy. Plan Feeding:general diet Analgesia:pyridium, amitriptyline, Tylenol Thromboembolic prophylaxis: Enoxaparin Ulcer prophylaxis: n/a Glycemic control: n/a Bowel regimen: MiraLax daily Lines: PIV Antibiotics: Meropenem Subjective Date/time seen: 02/22/23 09:29 Interval history: HPI obtained from chart, 77-year-old female with a past medical history hyperlipidemia, peripheral neuropathy and frequent urinary tract infections who presented to the ER from Urology office due to UTI.? The patient had a history of tendinitis with Levaquin and does not tolerate fluoroquinolones as such.? She was subsequently admitted to the hospital for IV antibiotic therapy.? She was evaluated in her primary care physician's office on 02/10/2023 after finishing a 7 day course of Macrobid.? Her urine culture at that time demonstrated greater than 100,000 colonies of E coli and Pseudomonas.? Despite treatment she has been having increasing frequency of urination, dysuria, and urgency.? She had repeat urine culture on the performed in the ER which grew out 100,000 colonies of Pseudomonas aeruginosa.? It was matute sensitive to multiple antibiotics the patient has a history of intolerance to fluoroquinolones and was sent to the ER for IV antibiotics.? The patient was started on meropenem in the ER.? She reports of sensation of fullness in her lower pelvis and feels if it bladder is going to fall out due to the pressure.? She does have increased dysuria and chronic frequency.? She is supposed to start on pelvic therapy this week to help with her urinary symptoms. Interval history: 02/22-patient reports she is feeling better today. Her suprapubic pain is improving after the antibiotics although she still is having retention on PVRs. I recommended placing a Carmen catheter is there is some concerns for prolapse causing her to retain. The patient wanted to speak with Urology before during the catheter. Per their note they do not mention placing a Carmen but they do say that she has had these 5 UTIs this year likely because of her incomplete emptying. She supposed to see Dr. Thomason on March 14 for possible surgery to correct her prolapse. Them recommended a renal ultrasound. Continuing with IV meropenem and she will need placement of midline for home health antibiotics. Please care coordination consult for this. I added on Pyridium should she need it for pain control. Otherwise she denies dizziness, headache, shortness of breath, chest pain, nausea, vomiting, diarrhea, and flank pain. Review of Systems Review of Systems: All systems reviewed & are unremarkable except as noted in HPI and below Exam Narrative: General: w
--- NOTE | 2023-02-22 09:59 | WPDURCON ---
Assessment and Plan Assessment and plan (1) Cystocele with prolapse: Code(s): N81.4 - Uterovaginal prolapse, unspecified Status: Acute Assessment and Plan: Pt. to see Dr. Howell on for evaluation and possible surgery to correct her prolapse. Likely contributing to chronic UTI's and incomplete emptying of bladder. (2) Recurrent UTI: Code(s): N39.0 - Urinary tract infection, site not specified Status: Acute Assessment and Plan: >5 UTI's per year, per patient. Get a JOY to rule out anatomic abnormalities. (3) Urinary tract infection due to Pseudomonas aeruginosa: Code(s): N39.0 - Urinary tract infection, site not specified; B96.5 - Pseudomonas (aeruginosa) (mallei) (pseudomallei) as the cause of diseases classified elsewhere Status: Acute Assessment and Plan: Continue IV therapy with Meropenem. Recommend IV therapy as an outpatient if needed per culture results. Tailor antibiotics to culture results. No further evaluation needed. Urology Consult Note HPI Date Seen: 02/22/23 Time Seen: 09:59 Requesting Physician: Reno López MD Primary Care Provider: Pawan Lowry MD Consult Narrative Narrative: Genevieve Doss is a 77 year old female who presented to the ER yesterday for the second time in a week d/t a complicated UTI. She has a history of chronic UTI's and has been treated by Dr. Che for years for them. She currently uses self start Nitrofurantoin, but her current culture from 02/15/23 when she first arrived at the ER grew Pseudomonas and was not sensitive to Nitrofurantoin. She is allergic to Levaquin which is the only oral antibiotic chronic for treatment of this infection. Her symptoms of dysuria, frequency, urgency, pelvic pressure and incomplete emptying worsened over the weekend and she was admitted for IV Meropenem yesterday. UA is suggestive of a UTI this admission and a new urine culture has been sent. She is afebrile, WBC is 7.3, creatinine is 0.70 and she is slightly hypotensive. She has had no recent imaging of her urinary tract. Review of Systems Cardiovascular: Cardiovascular: Denies chest pain Respiratory: Respiratory: Reports no additional respiratory complaints Gastrointestinal: Gastrointestinal: Denies abdominal pain, Denies nausea and Denies vomiting Genitourinary: Genitourinary: Denies hematuria, Reports nocturia, Reports dysuria, Reports pelvic pain, Denies flank pain, Denies urinary incontinence, Reports urinary hesitancy and Reports urinary urgency PMFSH Past Medical History Medical History Actinic keratoses Cancer of the skin, basal cell Chronic rhinosinusitis Cystocele with prolapse Eczema Gastro-esophageal reflux disease without esophagitis Lumbar spondylosis Mixed hyperlipidemia Neuropathy of both feet Recurrent UTI Restless legs syndrome Sciatica Seborrheic keratosis Surgical History Surgical History H/O abdominoplasty H/O: hysterectomy Partial History of appendectomy History of lumbar fusion 2012 and 2016 History of right cataract extraction Hx of tonsillectomy Family History Family History Grandparent Diabetes mellitus Sibling Family history of malignant neoplasm Mother Family history of Alzheimer's disease Family history of lung cancer Family history of malignant neoplasm of bone Father Malignant neoplasm of prostate Social History Social History Social History: She and her have been for 54 years. They have 1 son. She occasionally drinks a glass of wine. She is a lifelong nonsmoker. She ambulates without assistance and is independent activities of daily living. Code status: DNR (per EMR) Smoking status: Never smoker Alcohol in
[2023-02-22] MEDS: PHENAZOPYRIDINE HCL 100 MG TABLET 200 MG PO ×2 (12:00→18:26)
[2023-02-22 14:00] VITALS: BP 112/61; PULSE 84; RESP 18; TEMP 36.7; O2SAT 99
[2023-02-22 22:00] VITALS: BP 123/56; PULSE 66; RESP 20; TEMP 35.9; O2SAT 99
[2023-02-23] MEDS: MEROPENEM 1 GM/NS 100 ML 1 GM/100 ML BAG IVPB (02:05)
[2023-02-23 06:00] VITALS: BP 106/54; PULSE 71; RESP 16; TEMP 35.7; O2SAT 98
[2023-02-23 06:44] LABS: Basophils Percent Auto 0.3 % (0.2-1.2); Eosinophils Absolute Auto 0.1 K/mm3 (0-0.3); Eosinophils Percent Auto 1.4 % (0-4.4); Hematocrit 36.4 % (37.0-47.0); Hemoglobin 11.9 g/dL (12.0-15.0); Immature Granulocyte Absolute 0.04 K/mm3 (0.00-0.031); Immature Granulocyte Percent A 0.6 % (0-0.5); Lymphocytes Absolute Auto 1.08 K/mm3 (0.9-3.2); Mean Corpuscular HGB Conc 32.7 g/dl (32-36); Mean Corpuscular Volume 97.8 fl (80-100); Mean Platelet Volume 9.8 fl (7.4-10.4); Monocytes Absolute Auto 0.7 K/mm3 (0.1-0.6); Neutrophils Absolute Auto 5.3 K/mm3 (1.3-6.7); Neutrophils Percent Auto 73.7 % (45.5-73.1); Platelet Count Result 240 k/mm3 (150-375); Red Blood Count 3.72 M/mm3 (4.2-5.4); Red Cell Distribution Width 12.4 % (11.5-14.5); White Blood Count 7.2 K/mm3 (4.5-10.0)
[2023-02-23 06:58] LABS: Anion Gap 6 mmol/L (8-16); Blood Urea Nitrogen 16 mg/dL (7-17); Calcium 8.6 mg/dL (8.4-10.2); Carbon Dioxide 25 mmol/L (22-30); Chloride 107 mmol/L (98-107); Estimated CRCL calculation 61 ml/min; Estimated Glomerular Filt Rate > 60; Glucose 115 mg/dL (65-110); Potassium 3.6 mmol/L (3.4-5.0); Sodium 138 mmol/L (137-145)
[2023-02-23] MEDS: PHENAZOPYRIDINE HCL 100 MG TABLET 200 MG PO ×3 (08:40→17:03)
[2023-02-23] MEDS: MAGNESIUM OXIDE 400 MG TABLET PO (08:43)
[2023-02-23] MEDS: polyethylene glycoL 3350 17 GM POWD.PACK PO (08:44)
[2023-02-23] MEDS: LIDOCAINE HCL 1% LOCAL INJ 2 ML AMPUL 5 ML INFILTRATE (09:15)
[2023-02-23] MEDS: THERAPEUTIC MULTIVITAMINS/MINERALS TAB (*BKC) 1 TABLET PO (09:51)
[2023-02-23] MEDS: CEFEPIME 2 GM/NS 50 ML 2 GM/50 ML BAG IVPB ×2 (11:03→21:38)
[2023-02-23 14:00] VITALS: BP 101/54; PULSE 82; RESP 16; TEMP 36.7; O2SAT 97
--- NOTE | 2023-02-23 14:35 | PM.IMPN ---
Progress Note: A&P Assessment and Plan (1) Urinary tract infection due to Pseudomonas aeruginosa: Code(s): N39.0 - Urinary tract infection, site not specified; B96.5 - Pseudomonas (aeruginosa) (mallei) (pseudomallei) as the cause of diseases classified elsewhere Status: Acute Assessment and Plan: Recurrent UTI with symptoms of dysuria, frequency, and urgency. Past concerns for prolapse cystocele contributing vs interstitial cystisis. Having impaired emptying resulting in retention U/A is ambiguous for infection. Recent culture from 02/15 was growing pseudomonas susceptible to fluoroquinolones however patient has had problems with tendinitis in the past with these agents. Urology consulted and recommendations are appreciated Placed a carmen this morning for recurrent retention---patient asked to wait and see what urology recommended. Renal ultrasound performed revealing diverticulum Add Pyridium to see if this helps with her symptoms. It appears that her PCP had ordered amitriptyline at her last visit for interstitial cystitis. Midline ordered and inserted Meropenem transition to cefepime 2 g q.12 Care coordination consulted for assistance with home health and home antibiotic therapy. Subjective Date/time seen: 02/23/23 14:35 Interval history: patient feeling good today. She has no complaints at this time. She has not had any nausea, vomiting, pelvic pain or cramping. Waiting for home IV therapy to be set up. Also attempted to contact Urology regarding patient's retention problem. Patient states that she has to try really hard to use the restroom and sometime she does not have time to concentrate for that long. Patient does not want a Carmen catheter but wondering and she may need to straight cath herself. Will leave this up to Urology. Exam Narrative: GENERAL: Comfortable, no acute distress HENMT: moist mucous membranes EYES: EOM intact b/l NECK: no lymphadenopathy RESPIRATORY: clear to auscultation CARDIO: RRR GI: soft, nontender, bowel sounds present SKIN: no rashes EXTREMITIES: no edema, redness or tenderness Objective Data Vital Signs Vital Signs: Vital Signs - 24 hr 02/22/23 20:00 02/22/23 22:00 02/23/23 06:00 Temperature 96.7 F L 96.3 F L Pulse Rate 66 71 Respiratory Rate 20 16 Blood Pressure 123/56 L 106/54 L Pulse Oximetry 99 98 Oxygen Delivery Room Air 02/23/23 08:00 02/23/23 14:00 Temperature 98.0 F Pulse Rate 82 Respiratory Rate 16 Blood Pressure 101/54 L Pulse Oximetry 97 Oxygen Delivery Room Air Intake/Output Intake/Output: Intake & Output 02/20/23 02/21/23 02/22/23 02/23/23 23:59 23:59 23:59 23:59 Intake Total 100 1444 440 Output Total 1300 950 Balance 100 144 -510 Meds/Results Medications: Active Medications Generic Name Dose Route Start Last Admin Trade Name Freq PRN Reason Stop Dose Admin Acetaminophen 500 mg 02/22/23 09:52 Acetaminophen 500 Mg Tablet PO Q4H PRN Mild Pain (1-3) or Fever Calcium Carbonate 500 mg 02/22/23 09:00 02/23/23 08:43 Calcium/Vitamin D 500 Mg Tablet PO 03/24/23 08:59 500 mg DAILY [place] Administration Enoxaparin Sodium 40 mg 02/22/23 09:00 02/23/23 08:44 Enoxaparin 40 Mg/0.4 Ml Syringe SUB-Q Not Given DAILY [place] Cefepime HCl 2 gm in 50 mls @ 100 mls/hr 02/23/23 11:00 02/23/23 11:42 Maxipime 2 Gm/Ns 50 Ml IVPB Infused Q12HR [place] Infusion Magnesium Oxide 400 mg 02/22/23 09:00 02/23/23 08:43 Magnesium Oxide 400 Mg Tablet PO 03/24/23 08:59 400 mg DAILY [place] Administration Multivitamins/Calcium 1 tablet 02/22/23 09:00 02/23/23 09:51 Therapeutic Multivitamins/Minerals Tab (*Bkc) PO 1 tablet DAILY [place] Administration Non-Formulary Medication 200 mg 02/22/23 09:00 Coq10 (Ubiquinol) [Active Q] PO 03/24/23 08:59 DAILY [place] Phenazopyridine HCl 200 mg 02/22/23 12:00 02/23/23 11:04 Phenazopyridine Hcl 100
[2023-02-23] MEDS: SALINE LOCK FLUSH 10 ML IV PUSH ×2 (16:51→21:40)
[2023-02-23 20:33] VITALS: BP 102/53; PULSE 77; RESP 16; TEMP 36.8; O2SAT 99
[2023-02-23 20:35] VITALS: PULSE 77; RESP 16; O2SAT 99
[2023-02-24] MEDS: SALINE LOCK FLUSH 10 ML IV PUSH (05:07)
[2023-02-24 05:21] VITALS: BP 104/44; PULSE 67; RESP 18; TEMP 36.6; O2SAT 96
[2023-02-24 05:38] LABS: Basophils Percent Auto 0.3 % (0.2-1.2); Eosinophils Absolute Auto 0.2 K/mm3 (0-0.3); Eosinophils Percent Auto 2.3 % (0-4.4); Hematocrit 34.5 % (37.0-47.0); Hemoglobin 11.4 g/dL (12.0-15.0); Immature Granulocyte Absolute 0.03 K/mm3 (0.00-0.031); Immature Granulocyte Percent A 0.4 % (0-0.5); Lymphocytes Absolute Auto 1.37 K/mm3 (0.9-3.2); Lymphocytes Percent Auto 19.6 % (18.3-44.2); Mean Corpuscular Hemoglobin 31.7 pg (26-34); Mean Corpuscular Volume 95.8 fl (80-100); Mean Platelet Volume 9.8 fl (7.4-10.4); Monocytes Absolute Auto 0.6 K/mm3 (0.1-0.6); Monocytes Percent Auto 8.7 % (2.6-8.5); Neutrophils Absolute Auto 4.8 K/mm3 (1.3-6.7); Neutrophils Percent Auto 68.7 % (45.5-73.1); Platelet Count Result 250 k/mm3 (150-375); Red Cell Distribution Width 12.2 % (11.5-14.5)
[2023-02-24 05:47] LABS: Alanine Aminotransferase 22 U/L (6-35); Albumin Level 3.6 g/dL (3.5-5.1); Alkaline Phosphatase 73 U/L (38-126); Anion Gap 3 mmol/L (8-16); Aspartate Amino Transferase 33 U/L (14-36); Bilirubin,Total 0.6 mg/dL (0.2-1.3); Blood Urea Nitrogen 19 mg/dL (7-17); Calcium 8.6 mg/dL (8.4-10.2); Carbon Dioxide 29 mmol/L (22-30); Chloride 105 mmol/L (98-107); Estimated CRCL calculation 61 ml/min; Estimated Glomerular Filt Rate > 60; Glucose 95 mg/dL (65-110); Potassium 3.8 mmol/L (3.4-5.0); Sodium 137 mmol/L (137-145)
[2023-02-24] MEDS: polyethylene glycoL 3350 17 GM POWD.PACK PO (08:10)
[2023-02-24] MEDS: MAGNESIUM OXIDE 400 MG TABLET PO (08:10)
[2023-02-24] MEDS: THERAPEUTIC MULTIVITAMINS/MINERALS TAB (*BKC) 1 TABLET PO (08:10)
[2023-02-24] MEDS: ENOXAPARIN 40 MG/0.4 ML SYRINGE SUB-Q (08:10)
[2023-02-24] MEDS: CEFEPIME 2 GM/NS 50 ML 2 GM/50 ML BAG IVPB (08:40)
--- NOTE | 2023-02-24 09:44 | WPDUROPN2 ---
Progress Note: A&P Assessment and Plan (1) Recurrent UTI: Code(s): N39.0 - Urinary tract infection, site not specified Status: Acute Assessment and Plan: Continue Cefepime s/p discharge, follow up with IV care as planned. Switch self start antibiotics to Fosfomycin. (2) Cystocele with prolapse: Code(s): N81.4 - Uterovaginal prolapse, unspecified Status: Acute Assessment and Plan: Follow up as planned in February with Dr. Howell for assessment and treatment. Likely contributing to chronic UTIs and incomplete emptying. (3) Urinary tract infection due to Pseudomonas aeruginosa: Code(s): N39.0 - Urinary tract infection, site not specified; B96.5 - Pseudomonas (aeruginosa) (mallei) (pseudomallei) as the cause of diseases classified elsewhere Status: Acute Subjective Subjective Date/Time Seen: 02/24/23 09:44 Interval history: Pt. doing well, midline placed yesterday, pt. was taught how to give Cefepime 2G q12 for discharge. She will be managed at home for his Pseudomonas infection. I discussed with ID Pharmacy yesterday that she will stop Nitrofurantoin as a self start therapy as it is not covering her complicated infections, instead we will use Fosfomycin as a self start antibiotic. She does have incomplete emptying 200-300cc secondary to prolapse, but is comfortable. She is afebrile, urine culture grew Pseudomonas again. JOY showed a diverticulum but is otherwise normal. Review of Systems Cardiovascular: Cardiovascular: Denies chest pain Respiratory: Respiratory: Reports no additional respiratory complaints Gastrointestinal: Gastrointestinal: Denies abdominal pain, Denies nausea and Denies vomiting Genitourinary: Genitourinary: Denies hematuria, Reports nocturia, Reports dysuria, Reports pelvic pain, Denies flank pain, Denies urinary incontinence, Reports urinary hesitancy and Reports urinary urgency Exam Const: General: cooperative and comfortable Resp: Effort & Inspection: normal respiratory effort Cardio: Rate: regular rate GI: GI Palp: Yes Soft to palpation and No Tenderness to palpation present (GI) : General: Yes no CVA tenderness Extrem: Right lower extremity: no edema Left lower extremity: no edema Objective Data Vital Signs Vital Signs: Vital Signs - 24 hr 02/23/23 14:00 02/23/23 20:33 02/23/23 20:35 Temperature 98.0 F 98.2 F Pulse Rate 82 77 77 Respiratory Rate 16 16 16 Blood Pressure 101/54 L 102/53 L Pulse Oximetry 97 99 99 Oxygen Delivery Room Air 02/24/23 05:21 Temperature 97.9 F Pulse Rate 67 Respiratory Rate 18 Blood Pressure 104/44 L Pulse Oximetry 96 Oxygen Delivery Intake/Output Intake/Output: Intake & Output 02/21/23 02/22/23 02/23/23 02/24/23 23:59 23:59 23:59 23:59 Intake Total 100 1444 730 Output Total 1300 1450 300 Balance 100 144 -720 -300 Meds/Results Medications: Active Medications Generic Name Dose Route Start Last Admin Trade Name Freq PRN Reason Stop Dose Admin Acetaminophen 500 mg 02/22/23 09:52 Acetaminophen 500 Mg Tablet PO Q4H PRN Mild Pain (1-3) or Fever Calcium Carbonate 500 mg 02/22/23 09:00 02/24/23 08:10 Calcium/Vitamin D 500 Mg Tablet PO 03/24/23 08:59 500 mg DAILY [place] Administration Enoxaparin Sodium 40 mg 02/22/23 09:00 02/24/23 08:10 Enoxaparin 40 Mg/0.4 Ml Syringe SUB-Q 40 mg DAILY [place] Administration Cefepime HCl 2 gm in 50 mls @ 100 mls/hr 02/23/23 11:00 02/24/23 08:40 Maxipime 2 Gm/Ns 50 Ml IVPB 100 mls/hr Q12HR [place] Administration Magnesium Oxide 400 mg 02/22/23 09:00 02/24/23 08:10 Magnesium Oxide 400 Mg Tablet PO 03/24/23 08:59 400 mg DAILY [place] Administration Multivitamins/Calcium 1 tablet 02/22/23 09:00 02/24/23 08:10 Therapeutic Multivitamins/Minerals Tab (*Bkc) PO 1 tablet DAILY [place] Administration Non-Formulary Medication 200 mg 02/22/23 09:00 Coq10 (Ubiquinol) [Active Q] PO 10
--- NOTE | 2023-02-24 11:32 | PM.DS ---
DS: Admitting Diagnosis Discharge Date 02/24/23 Admitting Diagnosis UTI DS: Discharge Diagnosis Discharge Diagnosis (1) Urinary tract infection due to Pseudomonas aeruginosa: Code(s): N39.0 - Urinary tract infection, site not specified; B96.5 - Pseudomonas (aeruginosa) (mallei) (pseudomallei) as the cause of diseases classified elsewhere Status: Acute DS: Summary Hospital Course Hospital Course: this is a 77-year-old female past medical history of hyperlipidemia, peripheral neuropathy and frequent urinary tract infections that presented to the ER from Urology office due to UTI. Patient does have allergy to fluoroquinolones. She was started on IV antibiotic therapy and cultures were sent off. She recently finish a 7 day course of Macrobid. Urine culture positive Pseudomonas. Patient was started on meropenem. She also has a history bladder prolapse that she sees urology for. She did have some urinary retention that resolved with antibiotic therapy. She is to follow up with Urology in a couple weeks for possible surgery due to her prolapsed bladder. Sensitivities returned and patient requiring home IV antibiotics. Patient was transitioned to cefepime per urology and ID pharmacist recommendations. Patient was educated on home IV antibiotic maintenance. Her labs and vital signs are stable and she is medically clear for discharge at this time. Time Spent with Patient Time attestation: Total time spent providing and/or coordinating discharge services: Exam Narrative: GENERAL: Comfortable, no acute distress HENMT: moist mucous membranes EYES: EOM intact b/l NECK: no lymphadenopathy RESPIRATORY: clear to auscultation CARDIO: RRR GI: soft, nontender, bowel sounds present SKIN: no rashes EXTREMITIES: no edema, redness or tenderness DS: Data Data Completed and Pending Labs on day of discharge: Labs from last 24 hours 02/24/23 05:28 WBC 7.0 RBC 3.60 L Hgb 11.4 L Hct 34.5 L MCV 95.8 MCH 31.7 MCHC 33.0 RDW 12.2 Plt Count 250 MPV 9.8 Immature Gran % (Auto) 0.4 Neut % (Auto) 68.7 Lymph % (Auto) 19.6 [place] % (Auto) 8.7 H Eos % (Auto) 2.3 Baso % (Auto) 0.3 Lymph # (Auto) 1.37 [place] # (Auto) 0.6 Eos # (Auto) 0.2 Baso # (Auto) 0.0 Abs Immat Gran (auto) 0.03 Absolute Neuts (auto) 4.8 Absolute Nucleated RBC 0.0 Nucleated RBC % 0.0 Sodium 137 Potassium 3.8 Chloride 105 Carbon Dioxide 29 Anion Gap 3 L BUN 19 H Creatinine 0.60 L Estim Creat Clear Calc 61 Estimated GFR > 60 Glucose 95 Calcium 8.6 Total Bilirubin 0.6 AST 33 ALT 22 Alkaline Phosphatase 73 Total Protein 7.0 Albumin 3.6 Preliminary micro results at discharge 02/21/23 17:06 Urine Culture - Preliminary Urine Clean Catch Pseudomonas aeruginosa Discharge Plan Discharge Attending physician on discharge: Eliceo Elizondo Consulting providers: Vaughn Alonso; Tere Marks Discharging Clinician: Jolly Lopez Patient Disposition: Home, Self-Care Activity: as tolerated Diet: regular Discharge Instructions: IV antibiotic cefepime 2 g every 12 hours to be continued through 12/29/2022. Discontinue midline after antibiotic therapy is complete. Disposition: Take medications as prescribed Monitor blood pressures Avoid social areas, you wear a mask when in social settings Encouraged to continue with yearly vaccinations Return to the emergency department if he developed sudden shortness of breath, chest pain, nausea, vomiting, upset stomach or intractable diarrhea Return to the emergency department if you develop fever greater than 100.4 Follow-up with the primary care physician within 1-2 weeks Thank you for [facility] for your healthcare needs Urology Instructions: Follow up with Dr. Howell as planned. Stop Nitrofurantoin when you develop a UTI, you will now take Fosfomycin which is a packet of powder antibiotics that is mixe
== END 2023-02-24 13:38 | disposition home or self-care (01) ==
LOC: ANHED 17:01 → ANH3MEDSUR 22:11
PROVIDERS: Internal Medicine; Admitting Provider Chiropractor; Emergency Provider Physician Assistant; PCP Emergency Medicine; Visit Provider Internal Medicine Critical Care Medicine
DX: N39.0 Urinary tract infection, site not specified (principal); B96.5 Pseudomonas (aeruginosa) (mallei) (pseudomallei) as the cause of diseases classified elsewhere; N81.4 Uterovaginal prolapse, unspecified; Z16.23 Resistance to quinolones and fluoroquinolones; J32.9 Chronic sinusitis, unspecified; K21.9 Gastro-esophageal reflux disease without esophagitis; L30.9 Dermatitis, unspecified; E78.2 Mixed hyperlipidemia; G62.9 Polyneuropathy, unspecified; G25.81 Restless legs syndrome; Z66 Do not resuscitate; F10.90 Alcohol use, unspecified, uncomplicated; Z79.899 Other long term (current) drug therapy
CPT/HCPCS: 36415; 36569; 76775; 80048; 80053; 81001; 85025; 87077; 87086; 87186; 96365; 96366; 96367; 96372; 99285; A9270; G0378; J0692; J1650; J2185

== ENCOUNTER 2023-04-19 10:22 | Outpatient (CLI) | payer MEDICARE, SELFPAY ==
--- NOTE | 2023-04-19 10:29 | ECG_ITS ---
Measurements Intervals [place] Rate: 64 P: 68 PA: 147 QRS: 50 QRSD: 134 T: 21 QT: 412 QTc: 427 Interpretive Statements SINUS RHYTHM POSSIBLE LEFT ATRIAL ENLARGEMENT RIGHT BUNDLE BRANCH BLOCK ABNORMAL ECG NO PREVIOUS ECG AVAILABLE FOR COMPARISON Electronically Signed On 04-19-2023 11:01:58 MEDICAL CLAIMS PROCESSOR by Eleuterio Dalal D.O.
--- NOTE | 2023-04-26 12:07 | WPDHOLTEREM ---
Holter/Event Monitor Holter/Event Monitor Date of procedure: 04/19/23 Holter/Event Procedure: 48 Hr Holter Monitor Indications: Cardiac arrhythmia Conclusion: 1. 48 hour holter monitor on 04/19/23. 2. Underlying rhythm is sinus rhythm. HR range 44-115 bpm; average HR 72 bpm. HR at 44 bpm was at 05:24. 3. There are 70 premature supraventricular complexes and 2 supraventricular couplets. No supraventricular tachycardia. 4. There are 13 premature ventricular complexes. No ventricular tachycardia. 5. No sinoatrial or atrioventricular blocks. No significant pauses greater than 2 seconds. 6. Patient reports symptoms of weakness and palpitations which demonstrate sinus rhythm at 62 bpm.
== END 2023-04-19 10:23 | disposition home or self-care (01) ==
LOC: ANHCARD 10:23
PROVIDERS: PCP Emergency Medicine; Visit Provider Emergency Medicine
DX: I49.9 Cardiac arrhythmia, unspecified (principal); I45.10 Unspecified right bundle-branch block
CPT/HCPCS: 93005; 93225; 93226

== ENCOUNTER 2023-07-19 09:35 | Outpatient (CLI) | payer MEDICARE, SELFPAY ==
--- NOTE | ~2023-07-19 | US_ITS ---
EXAMINATION: US soft tissue pelvic DATE: 07/19/2023 10:52 INDICATION: Unspecified abdominal hernia without obstruction. TECHNIQUE: Multiple grayscale and Doppler ultrasound images of the pelvis were obtained. COMPARISON: None FINDINGS: There are bilateral inguinal hernias containing fat. IMPRESSION: 1. Bilateral inguinal hernias containing fat. Reviewed, dictated and finalized at location E. X [employer] ADMINISTRATOR
== END 2023-07-19 09:36 | disposition home or self-care (01) ==
PROVIDERS: PCP Emergency Medicine; Visit Provider Emergency Medicine
DX: K40.90 Unilateral inguinal hernia, without obstruction or gangrene, not specified as recurrent (principal); R19.00 Intra-abdominal and pelvic swelling, mass and lump, unspecified site
CPT/HCPCS: 76857

== ENCOUNTER 2023-12-22 16:18 | Outpatient (CLI) | payer MEDICARE, SELFPAY ==
--- NOTE | ~2023-12-22 | MM_ITS ---
EXAMINATION: MM screening kim BI w tommy HISTORY: Screening TECHNIQUE: Craniocaudal and mediolateral oblique 3-D tomosynthesis images were obtained and synthetic 2-D images were generated. CAD analysis was submitted and interpreted. COMPARISON: Comparison to multiple prior studies sequentially, with oldest reviewed study dated 02/10. BREAST PARENCHYMAL COMPOSITION: Dense: The breasts are heterogeneously dense, which may obscure small masses FINDINGS: There is no evidence of suspicious mass, calcification, or architectural distortion to sugg est malignancy in either breast. There has been no suspicious interval change. IMPRESSION: 1. No mammographic evidence of malignancy. 2. Recommend routine screening mammography in one year. BI-RADS Category 1: Negative Reviewed, dictated and finalized at location B.
== END 2023-12-22 16:19 | disposition home or self-care (01) ==
PROVIDERS: PCP Emergency Medicine; Visit Provider Emergency Medicine
DX: Z12.31 Encounter for screening mammogram for malignant neoplasm of breast (principal)
CPT/HCPCS: 77063; 77067

== ENCOUNTER 2024-01-12 11:47 | Outpatient (CLI) | payer MEDICARE, SELFPAY ==
[2024-01-12 13:24] LABS: Basophils Percent Auto 0.4 % (0.2-1.2); Eosinophils Absolute Auto 0.1 K/mm3 (0-0.3); Eosinophils Percent Auto 1.9 % (0-4.4); Hematocrit 37.9 % (37.0-47.0); Hemoglobin 12.6 g/dL (12.0-15.0); Immature Granulocyte Absolute 0.01 K/mm3 (0.00-0.031); Immature Granulocyte Percent A 0.2 % (0-0.5); Lymphocytes Absolute Auto 1.04 K/mm3 (0.9-3.2); Lymphocytes Percent Auto 19.7 % (18.3-44.2); Mean Corpuscular HGB Conc 33.2 g/dl (32-36); Mean Corpuscular Hemoglobin 32.3 pg (26-34); Mean Corpuscular Volume 97.2 fl (80-100); Mean Platelet Volume 10.2 fl (7.4-10.4); Monocytes Absolute Auto 0.6 K/mm3 (0.1-0.6); Monocytes Percent Auto 11.5 % (2.6-8.5); Neutrophils Absolute Auto 3.5 K/mm3 (1.3-6.7); Neutrophils Percent Auto 66.3 % (45.5-73.1); Platelet Count Result 234 k/mm3 (150-375); Red Cell Distribution Width 12.7 % (11.5-14.5); White Blood Count 5.3 K/mm3 (4.5-10.0)
[2024-01-12 14:02] LABS: Alanine Aminotransferase 23 U/L (6-35); Albumin Level 4.1 g/dL (3.5-5.1); Alkaline Phosphatase 78 U/L (38-126); Anion Gap 8 mmol/L (4-12); Aspartate Amino Transferase 55 U/L (14-36); Bilirubin,Total 0.7 mg/dL (0.2-1.3); Blood Urea Nitrogen 21 mg/dL (7-17); Calcium 9.1 mg/dL (8.4-10.2); Carbon Dioxide 28 mmol/L (22-30); Chloride 105 mmol/L (98-107); Cholesterol 151 mg/dL (0-200); Estimated Glomerular Filt Rate > 60; Glucose 87 mg/dL (65-110); HDL Direct 52 mg/dL; Sodium 141 mmol/L (137-145); Triglycerides 99 mg/dL (<150)
[2024-01-12 14:15] LABS: LDL Cholesterol Direct 74 mg/dL
== END 2024-01-12 11:48 | disposition home or self-care (01) ==
LOC: ANHGOSHLAB 11:48
PROVIDERS: PCP Emergency Medicine; Visit Provider Emergency Medicine
DX: I10 Essential (primary) hypertension (principal); I49.9 Cardiac arrhythmia, unspecified; I49.8 Other specified cardiac arrhythmias
CPT/HCPCS: 36415; 80053; 80061; 85025

== ENCOUNTER 2024-08-06 12:30 | Outpatient (CLI) | payer MEDICARE, SELFPAY ==
--- NOTE | 2024-08-06 12:30 | ECG_ITS ---
Test Date: 2024-08-06 12:52:42 Measurements Intervals [place] Rate: 67 P: 64 VT: 154 QRS: 31 QRSD: 130 T: 12 QT: 409 QTc: 433 Interpretive Statements SINUS RHYTHM POSSIBLE RIGHT VENTRICULAR CONDUCTION DELAY [RSR (QR) IN V1/V2] POSSIBLE INFERIOR MYOCARDIAL INFARCTION [30 ms Q WAVE IN II/aVF], PROBABLY OLD No previous ECG available for comparison Electronically Signed On 08-06-2024 14:04:19 CDT by Uday Coffman M.D.
[2024-08-06 13:25] LABS: Add Urine Microscopic? YES; Appearance Urine Cloudy (Clear); Bacteria Urine 4+ /hpf; Bilirubin Urine Negative (Negative); Blood Urine 1+ (Negative); Color Urine Yellow (Yellow); Glucose Urine UA Negative (Negative); Ketones Urine Negative (Negative); Leukocyte Esterase Ur 3+ LEU/UL (Negative); Nitrate Urine Positive (Negative); Non Pathogenic Casts 0-2; Protein Urine Negative (Negative); RBC Urine 0-2 /hpf (0-2); Specific Grav Ur 1.013 (1.001-1.035); Squamous Epithelial Cell Urine None Seen /hpf (Few); Urobilinogen Urine 0.2 mg/dL (<2.0); WBC Urine >100 /hpf (0-3); pH Urine 5.5 (5.0-9.0)
[2024-08-06 13:28] LABS: Basophils Percent Auto 0.5 % (0.2-1.2); Eosinophils Absolute Auto 0.1 K/mm3 (0-0.3); Eosinophils Percent Auto 1.8 % (0-4.4); Hematocrit 38.9 % (37.0-47.0); Hemoglobin 12.5 g/dL (12.0-15.0); Immature Granulocyte Absolute 0.01 K/mm3 (0.00-0.031); Immature Granulocyte Percent A 0.2 % (0-0.5); Lymphocytes Absolute Auto 0.95 K/mm3 (0.9-3.2); Lymphocytes Percent Auto 15.8 % (18.3-44.2); Mean Corpuscular HGB Conc 32.1 g/dl (32-36); Mean Corpuscular Hemoglobin 31.4 pg (26-34); Mean Corpuscular Volume 97.7 fl (80-100); Mean Platelet Volume 9.9 fl (7.4-10.4); Monocytes Absolute Auto 0.7 K/mm3 (0.1-0.6); Monocytes Percent Auto 11.5 % (2.6-8.5); Neutrophils Absolute Auto 4.2 K/mm3 (1.3-6.7); Neutrophils Percent Auto 70.2 % (45.5-73.1); Platelet Count Result 238 k/mm3 (150-375); Red Blood Count 3.98 M/mm3 (4.2-5.4); Red Cell Distribution Width 12.7 % (11.5-14.5)
[2024-08-06 13:29] LABS: Anion Gap 8 mmol/L (4-12); Blood Urea Nitrogen 27 mg/dL (7-17); Calcium 9.2 mg/dL (8.4-10.2); Carbon Dioxide 27 mmol/L (22-30); Chloride 104 mmol/L (98-107); Estimated Glomerular Filt Rate > 60; Glucose 85 mg/dL (65-110); Potassium 3.9 mmol/L (3.4-5.0); Sodium 139 mmol/L (137-145)
--- OUTSIDE RECORDS SUMMARY | 2024-08-06 14:24 | XMS_ITS | Patient Health Summary ---
Author Organization [facility] Address [address] [place] [address] Care Team Providers Care Pick And Shovel Man Name Role Phone Unavailable Primary Care Provider Unavailabl e Note from [facility],non-owned Affiliates and Associated Physician Practices is amultiple site organization consisting of ambulatory clinics and hospital sitesin [place], [place], [place] and [place]. This disclosure is being madepursuant to the Care Everywhere program and may not contain all information available regarding this patient. Last updated 18.[facility] Social History Tobacco Use Types Packs/Day Years Used Date Smoking Tobacco: Never Assessed Sex and Gender Information Value Date Recorded Sex Assigned at Not on file Gender Identity Not on file Sexual Orientation Not on file Procedures * GROSS + MICRO EXAM(Performed 01/27/2000) * GROSS + MICRO EXAM(Performed 07/16/1999) Results * GROSS + MICRO EXAM (01/27/2000 5:27 PM CDT) Only the most recent of2 resultswithin the time period is included. Result CASE NUMBER [id number] Comment: ORDERING PHYSICIAN SHARON PARKER SPECIMEN TYPE Lesion-rt flank Date 01/28/2000 Physician Xavier Gross Description The specimen is received in a formalin-filled container labeled with the patient's name and skin lesion right flank and consists of a single unoriented ellipse of reid white skin with attached subcutaneous tissue and measures 1.4 x .8 x .4 cm. Within the center of the specimen there is an ill defined depressed shen white area measuring up to .7 cm in greatest diameter. Resection margin is inked black and the specimen is serially sectioned. The tips are in cassette A, additional serial cross sections are submitted in cassette B. LBM/c Microscopic Exam Microscopic examination reveals sections of skin containing superficial multifocal basal cell carcinoma. There are multiple nests of dark basophilic nuclei with little cytoplasm in a characteristic palisading border underlying elastosis and chronic inflammation is noted. The inked surgical edges are free of malignancy. /[facility] Diagnosis I. Skin, right flank, excision A. Multifocal, superficial basal cell carcinoma B. Surgical margins free of malignancy. /[facility] Commercial Sheet Metal Foreman [facility] Pathologist Negrita Carrasquillo M.D. Snomed. 01/28/2000 1443 <1> CPT code 8307/20495 MISCELLANEOUS SAMPLES / Unknown 01/27/2000 5:27 PM CDT 01/27/2000 5:27 PM CDT Historical Provider LAB - PATHOLOGY/C YTOLOGY ORDERABLES
--- OUTSIDE RECORDS SUMMARY | 2024-08-06 14:24 | XMS_ITS | Referral Summary ---
Author Organization [facility] Address [address] [place] [address] Care Team Providers Care Order Checker Name Role Phone Unavailable Primary Care Provider Unavailabl e Source Comments [facility],non-owned Affiliates and Associated Physician Practices is amultiple site organization consisting of ambulatory clinics and hospital sitesin [place], [place], [place] and [place]. This disclosure is being madepursuant to the Care Everywhere program and may not contain all information available regarding this patient. Last updated 18.[facility] Se[facility] Social History Tobacco Use Types Packs/Day Years Used Date Smoking Tobacco: Never Assessed Sex and Gender Information Value Date Recorded Sex Assigned at Not on file Gender Identity Not on file Sexual Orientation Not on file Plan of Treatment Not on file
--- OUTSIDE RECORDS SUMMARY | 2024-08-06 14:24 | XMS_ITS | Clinical Summary ---
Author Organization [facility] Address [address] [place] [address] Care Team Providers Care Arboriculture Instructor Name Role Phone Unavailable Primary Care Provider Unavailabl e Source Comments [facility] [employer],non-owned Affiliates and Associated Physician Practices is amultiple site organization consisting of ambulatory clinics and hospital sitesin [place], [place], [place] and [place]. This disclosure is being madepursuant to the Care Everywhere program and may not contain all information available regarding this patient. Last updated 18.[facility] [employer] Social History Tobacco Use Types Packs/Day Years Used Date Smoking Tobacco: Never Assessed Sex and Gender Information Value Date Recorded Sex Assigned at Not on file Gender Identity Not on file Sexual Orientation Not on file Plan of Treatment Health Maintenance Due Date Last Done Comments BONE DENSITY TESTING 1945 DTAP/TDAP/TD VACCINES (1 - Tdap) 09/02/1962 PNEUMOCOCCAL VACCINE 50+ (1 of 1 - PCV) 09/02/1993 ZOSTER VACCINE (1 of 2) 09/02/1993 Respiratory Syncytial Virus (RSV) Vaccine Pt: or over 60 yrs (1 - 1-dose 75+ series) 09/02/2018 COVID-19 VACCINE (2023-2 5 season) 2024 INFLUENZA VACCINE (#1) 2024 DEPRESSION SCREENING 05/30/2024 HEPATITIS B VACCINE Aged Out No longe r eligible based on patient's age to complete this topic HIB VACCINE Aged Out No longer eligi ble based on patient's age to complete this topic HPV VACCINE Aged Out No longer eligi ble based on patient's age to complete this topic MENINGOCOCCAL (Group B) VACCINE Aged Out No longer eligible based on patient's age to complete this topic MENINGOCOCCAL VACCINE Aged Out No kelly luis felipe eligible based on patient's age to complete this topic
--- OUTSIDE RECORDS SUMMARY | 2024-08-06 14:24 | XMS_ITS | Clinical Summary ---
Author Organization [facility] Administrative Offices Address [address] [place] [address] Care Team Providers Care Director Of Conservation Name Role Phone Jacob Ladd MD Primary Care Provider [phone] Allergies Active Allergy Reactions Criticality Noted Date Comments Sulfa (Sulfonamide Antibiotics) Hives,Rash 10/2013 Medications multivitamin (DAILY-RADHA) tablet Take 1 Tab by mouth daily. Active CALCIUM CARBONATE/VITAM IN D3 (CALCIUM 600 + D,3, ORAL) Take by mouth. Active docosahexanoic acid, DHA, 200 mg Capsule Take 300 mg by mouth. Active coenzyme Q10 Capsule Take 10 mg by mouth daily. Active magnesium oxide 500 mg Tablet Take by mouth. Active docusate sodium (COLACE) 100 mg capsule Take 1 Cap by mouth 2 times daily. 60 Cap 0 08/09/2013 Active HYDROcodone-nathan taminophen (NORCO) 5-325 mg tablet Take 1-2 Tabs by mouth every 4 hours as needed for Pain, Moderate (For Pain Scale 4-6). 90 Tab 0 08/09/2013 Active cyclobenzaprine (FLEXERIL) 10 mg tablet Take 1 Tab by mouth 3 times daily as needed for Spasm. 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 Gender Identity Not on file Sexual Orientation Not on file Occupation Industry Job Start Date Job End Date Not on file Not on file Not on file Not on file Last Filed Vital Signs Vital Sign Reading Time Taken Comments Blood Pressure 106/43 08/09/2013 7:37 AM CDT Pulse 74 08/09/2013 7:37 AM CDT Temperature 36.9 C (98.5 F) 08/09/2013 7:37 AM CDT Respiratory Rate 16 08/09/2013 3:04 AM CDT Oxygen Saturation 96% 08/09/2013 7:37 AM CDT Inhaled Oxygen Concentration - - Weight 69.7 kg (153 lb 9.6 oz) 08/08/2013 11:17 AM CDT Height 161.3 cm (5' 3.5 ) 08/02/2013 12:48 PM CS T Body Mass Index 26.78 08/02/2013 12:48 PM GOVERNMENT AFFAIRS FELLOW Plan of Treatment Health Maintenance Due Date Last Done Comments DTAP/TDAP/TD VACCINES (1 - Tdap) 09/02/1962 PNEUMOCOCCAL VACCINE 50+ YEARS (1 of 1 - PCV) 09/02/18 94 ZOSTER VACCINE (1 of 2) 09/02/1993 OSTEOPOROSIS SCREENING 09/02/2008 RSV VACCINE (60+ or ) (1 - 1-dose 75+ series) 09/02/2018 INFLUENZA VACCINE (#1) 2023 Medical Devices Implanted Type Area Data Capture Clerk Device Identifier Shelf Expiration Date Model / Serial / Lot Plate Rflxhbrd 1lvl 14mm [id number] - Sload 311 Implanted:Qty : 1 on 08/08/2013 by Sammy Jama MD at [facility] Plate Left: Spine Cervical Anterior DELIA- SPINE [id number] / LOAD 07-26-2013 STERILIZATION Screw Rh Sd Va 4.0x14mm [id number] - Sload 311 Implanted:Qty : 4 on 08/08/2013 by Sammy Jama MD at [facility] Screw Left: Spine Cervical Anterior DELIA- SPINE [id number] / LOAD 07-26-2013 STERILIZATION Sealant Floseal W/ Adptr 10ml [id number] - [id number] Implanted:Qty : 1 on 08/08/2013 by Sammy Jama MD at [facility] Sealant Left: Spine Cervical Anterior [place]- BIOSCIENCE 10/27/2014 [id number] / / [id number] Bio Avs C-Plug 4, Allowash Xg Sterilized Allograft Bio-Implants Implanted:Qty : 1 on 08/08/2013 by Sammy Jama MD at [facility] Spine Left: Spine Cervical Anterior DELIA- SPINE 11/26/2017 [id number] / / ID: [id number] Description:CERV 4 DEG /PLUG 7 MM. BROUGHT IN BY DELIA REP. 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
== END 2024-08-06 12:31 | disposition home or self-care (01) ==
PROVIDERS: PCP Family Medicine; Visit Provider Surgery
DX: Z01.818 Encounter for other preprocedural examination (principal); K40.20 Bilateral inguinal hernia, without obstruction or gangrene, not specified as recurrent; N39.0 Urinary tract infection, site not specified; E78.2 Mixed hyperlipidemia
CPT/HCPCS: 36415; 80048; 81001; 85025; 86850; 86900; 86901; 87086; 87181; 87186; 93005

== ENCOUNTER 2024-08-15 00:40 | Day surgery (SDC) | payer MEDICARE, SELFPAY ==
[2024-08-03 13:08] VITALS: BMI 28.0
--- NOTE | 2024-08-03 13:32 | PC.NURSE ---
Report to the Outpatient Waiting Room, entrance under the green pavilion located off [facility], at time __6:30AM on date ___08/15/24____. Planned Procedure Time: ___8:30AM .? Time changes happen often and if your time is changed the preop area will call you the afternoon before. - You and your visitor will be asked to self-screen and do not enter if you have any COVID symptoms. Please call surgeon if you need to reschedule. - A mask is optional within the hospital at this time. Patients may have clear liquids (water, carbonated beverages, clear teas, apple juice) until 3 hours prior to surgery (5:30AM) with a maximum of 20 ounces. - No food from midnight until time of surgery and no smoking, or chewing tobacco (or any form of nicotine). No chewing gum, candy or mints. Take only the following medications with a SIP of water on the morning of surgery: NONE DO NOT STOP ANY OF YOUR OTHER PRESCRIPTION MEDICATIONS PRIOR TO SURGERY EXCEPT THE FOLLOWING Hold all vitamins and supplements for 3 days per anesthesiologist. Date to take last dose 08/11/24 Please no make-up, nail albanian, hairspray, perfume, deodorant, or body powder the day of surgery.? No jewelry (including any body piercings) or valuables the day of surgery, leave them at home.? Please take a shower or bath the night before, or the morning of, surgery with an antibacterial soap.? Wear comfortable, loose fitting clothing.? - Jewelry must be removed prior to entering the operating room.? Rings and piercings that are not removed may be cut off. - The hospital will not accept responsibility for valuables.? - Please leave all valuables, including medications, at home the day of surgery. If you are going home after surgery, a licensed tractor driver teamster must drive you home.? - NO public transportation without another adult if you receive anesthesia. - We recommend that an adult stay with you for 24 hours following discharge. - We also recommend that you do not drive, make important decision, drink alcoholic beverages, or take any drugs that were not prescribed by your health care provider for at least 24 hours after your discharge time. Follow any additional instructions given to you from your surgeon. Telephone instructions given to ____PATIENT and asked if any additional questions and then verbalized understanding. Patient advised to call surgeon office or pre surgery nurse liaison [phone] if any additional questions.
[2024-08-15] VITALS (17 sets, daily range): BP systolic 98–131; BP diastolic 44–63; PULSE 66–81; RESP 12–18; TEMP 36.3–36.4; O2SAT 94–100
--- OUTSIDE RECORDS SUMMARY | 2024-08-15 00:42 | XMS_ITS | Clinical Summary ---
Author Organization [facility] Address [address] [place] [address] Care Team Providers Care Boiler Maker Name Role Phone Unavailable Primary Care Provider Unavailabl e Source Comments [facility],non-owned Affiliates and Associated Physician Practices is amultiple site organization consisting of ambulatory clinics and hospital sitesin [place], [place], [place] and [place]. This disclosure is being madepursuant to the Care Everywhere program and may not contain all information available regarding this patient. Last updated 18.[facility] Social History Tobacco Use Types Packs/Day Years [...] to complete this topic MENINGOCOCCAL (Group B) VACC INE SHARED DECISION-MAKING Aged Out No longer eligibl e based on patient's age to complete this topic MENINGOCOCCAL GROUPS A/C/Y/W VACCINE Aged Out No longer eligible b ased on patient's age to complete this topic
--- OUTSIDE RECORDS SUMMARY | 2024-08-15 00:42 | XMS_ITS | Clinical Summary ---
Author Organization 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 Gender Identity Not on file Sexual Orientation [...] Body Mass Index 26.78 08/02/2013 12:48 PM ASPHALT PAVER OPERATOR Plan of Treatment Health Maintenance Due Date Last Done Comments DTAP/TDAP/TD VACCINES (1 - Tdap) 09/02/1962 PNEUMOCOCCAL VACCINE 50+ YEARS (1 of 1 - PCV) 09/02/18 94 ZOSTER VACCINE (1 of 2) 09/02/1993 OSTEOPOROSIS SCREENING 09/02/2008 RSV VACCINE (60+ or ) (1 - 1-dose 75+ series) 09/02/2018 INFLUENZA VACCINE (#1) 2023 Medical Devices Implanted Type Area Esthetician Spa Device Identifier Shelf Expiration Date Model / Serial / Lot Plate Rflxhbrd 1lvl 14mm [id number] - Sload 311 Implanted:Qty : 1 on 08/08/2013 by Sammy Jama MD at [facility] Plate Left: Spine Cervical Anterior DELIA- SPINE [id number] / LOAD 07-26-2013 STERILIZATION Screw Rh Sd Va 4.0x14mm [id number] - Sload 311 Implanted:Qty : 4 on 08/08/2013 by Sammy Jama MD at [facility] Screw Left: Spine Cervical Anterior DELIA- SPINE [id number] / LOAD 07-26-2013 STERILIZATION Sealant Floseal W/ Adptr 10ml [id number] - [id number] Implanted:Qty : 1 on 08/08/2013 by Sammy Jama MD at [facility] Sealant Left: Spine Cervical Anterior [place]- BIOSCIENCE 10/27/2014 [id number] / / [id number] Bio Avs C-Plug 4, Allowash Xg Sterilized Allograft Bio-Implants Implanted:Qty : 1 on 08/08/2013 by Sammy Jama MD at [facility] Spine Left: Spine Cervical Anterior DELIA- SPINE 11/26/2017 [id number] / / ID: [id number] Description:CERV 4 DEG /PLUG 7 MM. BROUGHT IN BY DELIA REP. Advance Directives For more information, please contact: [phone] Documents on File Type Date Recorded Patient Wood Patternmaker Expl anation Advance Directive POA 08/08/2013 10:57 AM Advance Directive POA * Full Code (Latest Code Status on File) Date Activated Date Inactivated Comments 08/08/2013 7:13 PM 08/09/2013 1:06 PM * Full Code Date Activated Date Inactivated Comments 08/08/2013 11:12 AM 08/08/2013 7:13 PM Care Teams Squad Sergeant Relationship Specialty Start Date End Date Jacob Ladd MD [address] [place] [address] PCP - General Family Practice 12/10/13
--- NOTE | 2024-08-15 07:17 | WPDANESEPPF ---
Anes - Initial Pre Proc Eval Procedure: Operation Date: 08/15/24 08:30 Proposed Procedures p Robotic Laparoscopic Bilateral Inguinal Hernia Repair with Mesh - Vinny Lui MD Date/Time: 08/15/24 07:17 Surgeon: Vinny Lui MD Pre Op Diagnosis: bilateral Inguinal Hernia Patient Data Age: 78 Gender: F Height: 1.6 m Weight: 72 kg Allergies Allergy/AdvReac Type Severity Reaction Status Date / Time Sulfa (Sulfonamide Allergy Unknown Skin Verified 08/15/24 07:06 Antibiotics) Reaction/rash levofloxacin AdvReac Severe tendinitis Verified 08/15/24 07:06 erythromycin base AdvReac Unknown stomach Verified 08/15/24 07:06 cramps fluoroquinolones Allergy tendonitis Uncoded 08/15/24 07:06 Home Medications ?Medication ?Instructions ?Recorded ?Confirmed ?Type calcium 600 mg (as carbonate)-vit 1 tablet PO DAILY 05/08/19 08/15/24 History D3 20 mcg (800 unit) chewable tablet (Caltrate plus D) coQ10 (ubiquinol) 200 mg capsule 200 mg PO DAILY 05/08/19 08/15/24 History (Active Q) lytecpln-jrtv-zlee 8 mg-folic 400 1 tablet PO DAILY 05/08/19 08/15/24 History mcg-K 50 mcg-lutein 300 mcg tablet (Centrum Silver Women) UQORA BLADDER PREVENTION 3 cap PO DAILY 08/03/24 08/15/24 History cranberry 500 mg capsule 1,000 mg PO DAILY 08/03/24 08/15/24 History estradiol 0.01% (0.1 mg/gram) vaginal 08/06/24 History vaginal cream atorvastatin 20 mg tablet See Rx Instructions .Route 08/09/24 08/15/24 Rx .COMPLEX #90 tabs Patient hx anesthesia problems: none Family hx anesthesia problems: none Results Review: All pre-operative results and documents have been reviewed as part of the pre-operative evaluation. COUNTS INCLUDE 234 BEDS AT THE [facility] Past Medical History Medical History Cancer of the skin, basal cell Cystocele with prolapse Recurrent UTI Chronic rhinosinusitis Neuropathy of both feet Sciatica Lumbar spondylosis Seborrheic keratosis Eczema Actinic keratoses Gastro-esophageal reflux disease without esophagitis Mixed hyperlipidemia Restless legs syndrome Surgical History Surgical History History of right cataract extraction History of lumbar fusion 2012 and 2017 History of appendectomy Hx of tonsillectomy H/O: hysterectomy Partial H/O abdominoplasty Family History Family History Grandparent Diabetes mellitus Sibling Family history of malignant neoplasm Mother Family history of Alzheimer's disease Family history of lung cancer Family history of malignant neoplasm of bone Father Malignant neoplasm of prostate Social History Social History Social History: She and her have been for 54 years. They have 1 son. She occasionally drinks a glass of wine. She is a lifelong nonsmoker. She ambulates without assistance and is independent activities of daily living. Code status: DNR (per EMR) Smoking status: Never smoker Alcohol intake: current Substance use: never Substance use type: does not use Do You Feel Safe in your Home?: Yes Lack of Transportation: No Lack of Food: Never True Current Housing: I Have Housing Concerned About Future Housing: No Difficulty Paying Gas/Electric Bills: No Difficulty Paying for Meds: No Currently Unemployed: No Education: Master's Degree or Higher Difficulty w/ Childcare or Family Care: No Living arrangements: with family Additional living arrangements comments: MICHELL Spiritual care concerns: No Anes - Eval Final PreProcedure Day of Procedure 08/15/24 07:17 Patient weight: overweight Heart: regular rate and rhythm Lungs: clear to auscultation Airway: Mallampati scale class II Neurological: alert and oriented Last oral intake: >/= 8 hours ASA classification: III Emergent: no Anesthetic plan: proceed Anesthesia type and monitoring: general ETT and standard monitoring Results Review: All pre-operative results and documents have been reviewed as part of the pre-operative evaluation. Informed Consent: The patient's anesthetic plan and its attendant risks and benefits were discussed with the patient/family/POA. Questions were solicited and answers provided to the satisfaction of the patient/family/POA.
[2024-08-15] MEDS: LACTATED RINGERS 1,000 ML 30 ML IV CONT ×3 (07:25→15:35)
[2024-08-15] MEDS: ACETAMINOPHEN 500 MG TABLET 1000 MG PO (07:28)
[2024-08-15] MEDS: KETOROLAC 15 MG/ML VIAL (*BKC) IV PUSH (07:28)
--- NOTE | 2024-08-15 07:36 | P.SS_ITS ---
Same Day Admit/Disch: HPI History of Present Illness Chief complaint: bilateral Inguinal Hernia Narrative: Genevieve Doss is a 78 year old female with a history of chronic urinary tract infections who has had bilateral inguinal hernias for quite some time. She held off on having these repaired due to medical issues with her . She was seen in the office and found to have bilateral inguinal hernias. She is taken to surgery now for robotic laparoscopic repair with mesh. [facility] Past Medical History Medical History Cancer of the skin, basal cell Cystocele with prolapse Recurrent UTI Chronic rhinosinusitis Neuropathy of both feet Sciatica Lumbar spondylosis Seborrheic keratosis Eczema Actinic keratoses Gastro-esophageal reflux disease without esophagitis Mixed hyperlipidemia Restless legs syndrome Surgical History Surgical History History of right cataract extraction History of lumbar fusion 2012 and 2016 History of appendectomy Hx of tonsillectomy H/O: hysterectomy Partial H/O abdominoplasty Family History Family History Grandparent Diabetes mellitus Sibling Family history of malignant neoplasm Mother Family history of Alzheimer's disease Family history of lung cancer Family history of malignant neoplasm of bone Father Malignant neoplasm of prostate Social History Social History Social History: She and her have been for 54 years. They have 1 son. She occasionally drinks a glass of wine. She is a lifelong nonsmoker. She ambulates without assistance and is independent activities of daily living. Code status: DNR (per EMR) Smoking status: Never smoker Alcohol intake: current Substance use: never Substance use type: does not use Do You Feel Safe in your Home?: Yes Lack of Transportation: No Lack of Food: Never True Current Housing: I Have Housing Concerned About Future Housing: No Difficulty Paying Gas/Electric Bills: No Difficulty Paying for Meds: No Currently Unemployed: No Education: Master's Degree or Higher Difficulty w/ Childcare or Family Care: No Living arrangements: with family Additional living arrangements comments: HUSB Spiritual care concerns: No Same Day Admit/Disch: Med Pre-admit Medications Home Medications ?Medication ?Instructions ?Recorded ?Confirmed ?Type calcium 600 mg (as carbonate)-vit 1 tablet PO DAILY 05/08/19 08/15/24 History D3 20 mcg (800 unit) chewable tablet (Caltrate plus D) coQ10 (ubiquinol) 200 mg capsule 200 mg PO DAILY 05/08/19 08/15/24 History (Active Q) khxwbrxj-dvpb-tfuu 8 mg-folic 400 1 tablet PO DAILY 05/08/19 08/15/24 History mcg-K 50 mcg-lutein 300 mcg tablet (Centrum Silver Women) UQORA BLADDER PREVENTION 3 cap PO DAILY 08/03/24 08/15/24 History cranberry 500 mg capsule 1,000 mg PO DAILY 08/03/24 08/15/24 History estradiol 0.01% (0.1 mg/gram) vaginal 08/06/24 History vaginal cream atorvastatin 20 mg tablet See Rx Instructions .Route 08/09/24 08/15/24 Rx .COMPLEX #90 tabs ibuprofen 600 mg tablet 600 mg PO Q6H PRN pain #14 tabs 08/15/24 Rx oxycodone-acetaminophen 5 mg-325 0.5 - 1 tablet PO Q4H PRN pain #10 08/15/24 Rx mg tablet (Percocet) tabs Review of Systems Review of Systems All systems reviewed & are unremarkable except as noted in HPI and below (HPI) Exam Const: General: comfortable, no acute distress, alert and awake HENMT: Head: normocephalic and atraumatic Mouth: Yes Normal oral and palatal mucosa present Eyes: Conjunctivae: conjunctivae normal Pupils: Equal, round and reactive pupils present EOM: EOMs intact bilaterally Neck: Neck: normal visual inspection, no lymphadenopathy and nontender Resp: Effort & Inspection: normal respiratory effort Auscultation: clear to auscultation bilaterally Cardio: Rate: regular rate Rhythm: regular rhythm Heart sounds: no gallops, no murmurs and no rubs GI: Inspection: non-distended and visible herniation GI Palp: Yes Soft to palpation, No Tenderness to palpation present (GI), No Hepatomegaly present, No Splenomegaly present and Yes Hernia present (Bilateral inguinal hernias, reducible, right larger than left) Skin: Lesions: no lesions Rashes: no rashes Neuro: General: no focal motor deficits and CN's II-XI intact bilaterally Cranial nerves: Yes Equal, round and reactive pupils present, Yes Bilaterally intact EOM present, Yes facial symmetry and Yes Midline tongue present Speech: normal speech Motor exam (neuro): 5/5 motor strength present throughout and Motor abnormalities not present Extrem: General: no clubbing, cyanosis or edema and edema Psych: Affect: normal affect Thought process: Normal thought process present Insight: Good insight present (Psych) DS: Summary Time Spent with Patient Time attestation: Total time spent providing and/or coordinating discharge services: DS: Admitting Diagnosis Discharge Date 08/15/2024 Admitting Diagnosis * Bilateral inguinal hernias-plan to proceed with robotic laparoscopic repair using mesh. The procedure, risks, benefits, and alternatives have been discussed. All questions were answered. She understands and agrees to go ahead. * Chronic urinary tract infection-her urologist has noted that she frequently has asymptomatic bacteriuria that they do not treat. No current symptoms of urinary tract infection although urinalysis and culture were positive. DS: Discharge Diagnosis Discharge Diagnosis (1) Bilateral inguinal hernia: Qualifiers: Obstruction and gangrene presence: without obstruction or gangrene Recurrence: non-recurrent Qualified Code(s): K40.20 - Bilateral inguinal hernia, without obstruction or gangrene, not specified as recurrent Code(s): K40.20 - Bilateral inguinal hernia, without obstruction or gangrene, not specified as recurrent Status: Chronic Discharge Plan Discharge Patient Disposition: Home, Self-Care Discharge Instructions: 1. May shower the day after surgery over incisions. 2. Call office for: -Wound increasingly painful or bleeding -Vomiting -Fever of greater than 101 degrees 3. Expect some blood on dressing and old blood on skin. 4. If no bowel movement for three days, take 1 oz. (30 ml) Milk of Magnesia, if no results, take Fleets enema. 5. No heavy lifting > 15-20 pounds for 2 weeks. 6. No driving for 3 days or while taking narcotic pain medications. 7. Up walking 10-30 minutes three times per day. Okay to use stairs, take them slowly at 1st. 8. Resume previous home medications. 9. Follow-up 10-14 days in office for wound check or as previously scheduled. 10. Oral pain medications prescription to be sent home with patient. 11. NUTRITION: Start out by drinking fluids and increase your diet as tolerate d. If you experience nausea, try dry toast, crackers, and 7-UP. If nausea or vomiting persists, contact your surgeon?s office. Patient Language: Tamazight Stand Alone Forms: General Discharge Instructions Follow-up/Referrals: Vinny Lui MD [Physician] - 2 Weeks Discharge Medications: New oxycodone-acetaminophen [Percocet] 5-325 mg tablet 0.5 - 1 tablet PO Q4H PRN (Reason: pain) Qty: 10 0RF ibuprofen 600 mg tablet 600 mg PO Q6H PRN (Reason: pain) Qty: 14 0RF Continued Caltrate 600 plus D 600 mg (1,500 mg)-800 unit tablet,chewable 1 tablet PO DAILY Centrum Silver Women 8 mg iron-400 mcg-300 mcg tablet 1 tablet PO DAILY Active Q 200 mg capsule 200 mg PO DAILY UQORA BLADDER PREVENTION 3 cap PO DAILY cranberry 500 mg capsule 1,000 mg PO DAILY Rx Instructions: administer with a meal estradiol 0.01 % (0.1 mg/gram) cream VAGINAL atorvastatin 20 mg tablet See Rx Instructions .ROUTE .COMPLEX Qty: 90 1RF Dose Instruction: TAKE 1 TABLET BY MOUTH EVERY DAY Rx Instructions: TAKE 1 TABLET BY MOUTH EVERY DAY
--- NOTE | 2024-08-15 07:40 | WPDHPUPDATE1 ---
History and Physical Update Update Date/Time: 08/15/24 07:40 History and Physical has been reviewed, including an updated exam of the patient. There are NO changes in the patient's condition. Risks, benefits, and alternatives have been discussed and questions answered. Patient agrees to proceed with procedure.
[2024-08-15] MEDS: ceFAZolin 2 GM/D5W 50 ML 2 GM/50 ML BAG IVPB (09:10)
[2024-08-15] MEDS: BUPIVACAINE/EPINEPHRINE 0.5% 30 ML VIAL INFILTRATE (09:43)
--- NOTE | 2024-08-15 12:06 | W.PM.PROC2 ---
Procedure Note - Detailed Date of Procedure 08/15/24 Pre-op Diagnosis bilateral Inguinal Hernia Post-op Diagnosis Same Procedure Performed Robotic laparoscopic repair bilateral inguinal hernias with mesh Surgeon Vinny Lui MD Chain Link Fence Installer Suzie Qureshi [facility] Anesthesia General and Local Indications Patient has noted bilateral inguinal bulges which are occasionally uncomfortable. The right side is larger than the left. She was seen in the office and found to have bilateral her inguinal hernias. She is taken to surgery now for robotic laparoscopic repair with mesh Findings The hernias were bilateral direct inguinal hernias Description of Procedure Patient was taken to surgery and induced into general anesthesia. The abdomen was prepped and draped. Trocars were placed in the usual fashion starting with a 5 mm applied Medical optical trocar in the left subcostal position. Robotic trocars were then placed under direct visualization and the optical trocar was replaced under direct visualization. Patient was placed in Trendelenburg. Bilateral ileoinguinal nerve block was applied. The robotic arms were brought into the field and the camera was docked and targeted. The operating arms were then docked and instruments were placed and positioned. The surgeon went to the robotic console. There were quite a few omental adhesions covering both of the hernia defects. These were taken down using cautery and sharp dissection. The right-sided hernia was addressed 1st. A peritoneal flap was developed just anterior to the inguinal canal structures. This plane was developed broadly starting laterally and proceeding to the median umbilical ligament. Medially dissection was carried down just under the right rectus muscle. Eventually Salvatore's ligament was exposed. We continued our dissection of Salvatore's ligament and identified the midline and the pubis. Dissection proceeded a couple of cm past midline both on the pubis as well as between the 2 rectus muscles. The lateral dissection was then further carried out. I then placed some traction on the hernia sac in the direct space. The sac was carefully dissected and the transversalis fascia was noted. There was a large hernia sac here but eventually we were able to dissected completely free from the transversalis fascia. I then dissected out the round ligament and looked for a lipoma in the indirect space. None was found. I divided the round ligament with the cautery. We then further dissected the peritoneum well away from the posterior inguinal canal structures. A right-sided extra-large 3DMax mid mesh was chosen and placed into the peritoneal cavity. This was positioned. The mesh was sutured to Salvatore's ligament with a 3-0 Vicryl. 3-0 Vicryl suture were also used to suture the mesh to the anterior abdominal wall on each side of the inferior epigastric vessels. It was in good position. We then turned our attention to the left inguinal canal structures and hernia. Similarly, a peritoneal flap was started laterally and continued medially over to the median umbilical ligament on the left side. The sac was again dissected broadly and Salvatore's ligament was exposed. The medial dissection was continued with the right-sided dissection making that a bit easier. Patient had a direct inguinal hernia on the left side and this hernia sac was reduced. We dissected the transversalis fascia from the hernia sac and then finally divided the remaining attachments of the sac to the transversalis fascia. The indirect space was checked and no lipoma was found. I divided the round ligament on the left side as had been done on the right. The peritoneum was dissected well away from the posterior inguinal canal structures. I then placed a large mid left-sided 3DMax mesh over the hernia defect and the inguinal canal structures. This was also sutured with 3-0 Vicryl to Salvatore's ligament. 3-0 Vicryl was also used to suture it to the anterior abdominal wall on either side of the inferior epigastric vessels. The 2 pieces of mesh overlapped a bit in the midline as planned. I then closed the peritoneum on the left side from lateral to medial using 3 0 V lock running suture. Three 0 V lock was then used to close the peritoneum on the right side again starting laterally and running the suture medially to close the opening. All looked good. We removed all loose suture and all 4 needles. Patient's bladder was pretty distended by the into the surgery. Straight urinary bladder catheterization was done at the conclusion of the procedure and drained about 600 cc. Patient was then awakened and taken to recovery in good condition. Sponge and needle counts were correct x2. All surgical incisions were dressed with Exofin surgical adhesive. Implants Right side extra-large mid 17 x 12 cm 3DMax mesh Left side large mid 16 x 10 cm 3DMax mesh Estimated Blood Loss -15 Urine Output -600 Drains No Packing No Pathology None sent Complications None Condition Stable Disposition PACU [facility] Billing Surgery - Charge Forward: Surgery Billing (Robotic laparoscopic repair bilateral inguinal hernias with mesh)
[2024-08-15] MEDS: ONDANSETRON INJ 4 MG/2 ML VIAL IV PUSH (16:36)
== END 2024-08-15 17:30 | disposition home or self-care (01) ==
PROVIDERS: PCP Family Medicine; Visit Provider Surgery
PROC: 8E0Y4CZ Robotic Assisted Procedure of Lower Extremity, Percutaneous Endoscopic Approach (ICD-10-PCS; CPT 49650; principal; 2024-08-15 08:30)
DX: K40.20 Bilateral inguinal hernia, without obstruction or gangrene, not specified as recurrent (principal); K66.0 Peritoneal adhesions (postprocedural) (postinfection); G89.18 Other acute postprocedural pain; K21.9 Gastro-esophageal reflux disease without esophagitis; E78.2 Mixed hyperlipidemia; G25.81 Restless legs syndrome; J32.9 Chronic sinusitis, unspecified; G62.9 Polyneuropathy, unspecified; M47.896 Other spondylosis, lumbar region; L82.1 Other seborrheic keratosis; L57.0 Actinic keratosis; Z79.1 Long term (current) use of non-steroidal anti-inflammatories (NSAID); Z79.891 Long term (current) use of opiate analgesic; Z98.890 Other specified postprocedural states; Z98.1 Arthrodesis status; Z85.828 Personal history of other malignant neoplasm of skin; Z80.1 Family history of malignant neoplasm of trachea, bronchus and lung; Z80.8 Family history of malignant neoplasm of other organs or systems; Z80.42 Family history of malignant neoplasm of prostate
CPT/HCPCS: 49650; S2900; 36415; 80048; 81001; 85025; 86850; 86900; 86901; 87077; 87086; 87147; 87181; 87186; 93005; A9270; C1781; J0690; J1100; J1885; J2371; J2405; J2704; J3010; J7030; J7120

== ENCOUNTER 2024-10-03 11:05 | Outpatient (CLI) | payer MEDICARE, SELFPAY ==
--- NOTE | ~2024-10-03 | US_ITS ---
Right inguinal ULTRASOUND (Doppler ultrasound interrogation techniques used as needed for this exam.) Ordering provider: Vinny Lui MD History: . K40.91 - Unilateral inguinal hernia, without obstruction ... . Comparison: None. FINDINGS/impression: Complex fluid collection is seen in the right inguinal area which may be a hematoma, seroma or lympha ngioma which measures 3.8 x 2.7 x 3.7 cm. Infected lymph node or an abscess is less likely. Follow-up and further evaluation advised. Reviewed, dictated and finalized at location A.
== END 2024-10-03 11:06 | disposition home or self-care (01) ==
PROVIDERS: PCP Family Medicine; Visit Provider Surgery
DX: K40.91 Unilateral inguinal hernia, without obstruction or gangrene, recurrent (principal)
CPT/HCPCS: 76882

== ENCOUNTER 2024-11-02 09:30 | Outpatient (CLI) | payer MEDICARE, SELFPAY ==
--- NOTE | ~2024-11-02 | DEXA_ITS ---
Bone Density Report Name: EMA MALAGON Age: 79 Sex: Female Ethnicity: White Date of : 1945 Indication: postmenopausal; screening for osteoporosis; height loss; prior fracture; hysterectomy; Referring Provider: AXEL DUPREE Study: Bone densitometry was performed. Exam Date: November 02, 2024 Accession number: [id number] Bone Density: Region BMD T-score Z-score Classification AP Spine(L1-L4) 1.083 0.3 3.1 Normal Femoral Neck (Left) 0.835 -0.1 2.2 Normal Total Hip (Left) 0.914 -0.2 1.9 Normal Femoral Neck (Right) 0.735 -1.0 1.3 Normal Total Hip (Right) 0.876 -0.5 1.6 Normal Total Hip Mean 0.895 -0.4 1.8 Normal World Health Organization criteria for BMD impression classify patients as: Normal (T-score at or above -1.0), Osteopenia (T-score between -1.0 and -2.5), or Osteoporosis (T-score at or below -2.5). 10-year Fracture Risk: FRAX not reported because: All T-scores for Spine Total, Hip Total, Femoral Neck at or above -1.0 Clinical Information Provided by Patient: Has had a low trauma fracture Has used the following medications: Fosamax (i.e. alendronate), Vitamin D, Calcium Has the following medical conditions: Hysterectomy Patient maximum height was 64 Menopause Age: 38 No regular weight bearing exercise Onset of menses at age 8 Number of children 1 Impression: The patient has normal bone mass. The patient has risk factors, including: previous fracture. Discussion: BONE DENSITY IS ABOVE THE MINIMUM DESIRABLE LEVEL AT ALL SKELETAL SITES TESTED. This patient?s bone mineral density is above the minimum desirable level (T-score -1.0 or better) at all sites measured. The patient should follow a healthful lifestyle (good nutrition with adequate calcium and vitamin D, and appropriate weight-bearing exercise). Follow-Up: Consider repeating this study in 5 years or sooner if there is some new clinical indication. Reported by: JAMES on 11/02/2024 10:31:00 AM. Reviewed, dictated and finalized at location A.
== END 2024-11-02 09:31 | disposition home or self-care (01) ==
LOC: ANHIMG 09:31
PROVIDERS: PCP Family Medicine; Visit Provider Family Medicine
DX: Z13.820 Encounter for screening for osteoporosis (principal); Z78.0 Asymptomatic menopausal state
CPT/HCPCS: 77080

== ENCOUNTER 2025-01-08 11:03 | Outpatient (CLI) | payer MEDICARE, SELFPAY ==
--- OUTSIDE RECORDS SUMMARY | 2025-01-08 11:55 | XMS_ITS | Clinical Summary ---
Author Organization [facility] [employer] Address [address] [place] [address] Care Team Providers Care Rn Wellness Name Role Phone Unavailable Primary Care Provider Unavailabl e Source Comments [facility] [employer],non-owned Affiliates and Associated Physician Practices is amultiple site organization consisting of ambulatory clinics and hospital sitesin [place], [place], [place] and [place]. This disclosure is being madepursuant to the Care Everywhere program and may not contain all information available regarding this patient. 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
[2025-01-08 13:40] LABS: Alanine Aminotransferase 21 U/L (6-35); Albumin Level 4.1 g/dL (3.5-5.1); Alkaline Phosphatase 75 U/L (38-126); Anion Gap 4 mmol/L (4-12); Aspartate Amino Transferase 47 U/L (14-36); Bilirubin,Total 0.7 mg/dL (0.2-1.3); Blood Urea Nitrogen 24 mg/dL (7-17); Calcium 9.2 mg/dL (8.4-10.2); Carbon Dioxide 30 mmol/L (22-30); Chloride 105 mmol/L (98-107); Cholesterol 149 mg/dL (0-200); Estimated Glomerular Filt Rate > 60; Glucose 91 mg/dL (65-110); HDL Direct 48 mg/dL; Potassium 4.2 mmol/L (3.4-5.0); Sodium 139 mmol/L (137-145); Total Protein 7.2 g/dL (6.3-8.2); Triglycerides 90 mg/dL (<150)
== END 2025-01-08 11:04 | disposition home or self-care (01) ==
LOC: ANHGOSHLAB 11:04
PROVIDERS: PCP Family Medicine; Visit Provider Family Medicine
DX: E78.2 Mixed hyperlipidemia (principal)
CPT/HCPCS: 36415; 80053; 80061

== ENCOUNTER 2025-02-15 13:57 | Outpatient (CLI) | payer MEDICARE, SELFPAY ==
--- NOTE | ~2025-02-15 | MM_ITS ---
EXAMINATION: MM screening kim BI w tommy HISTORY: Screening TECHNIQUE: Craniocaudal and mediolateral oblique 3-D tomosynthesis images were obtained and synthetic 2-D images were generated. CAD analysis was submitted and interpreted. COMPARISON: Comparison to multiple prior studies sequentially, with oldest reviewed study dated , 03/16/2019 BREAST PARENCHYMAL COMPOSITION: The breasts are heterogeneously dense, which may obscure small masses. FINDINGS: There is no evidence of suspicious mass, calcification, or architectural distortion to suggest malignancy in either breast. IMPRESSION: 1. No mammographic evidence of malignancy. 2. Recommend routine screening mammography in one year. BI-RADS Category 1: Negative Reviewed, dictated and finalized at location B.
--- OUTSIDE RECORDS SUMMARY | 2025-02-15 14:00 | XMS_ITS | Clinical Summary ---
Author Organization [facility] [employer] Address [address] [address] Care Team Providers Care Party Plan Sales Consultant Name Role Phone Unavailable Primary Care Provider Unavailabl e Source Comments [facility] [employer],non-owned Affiliates and Associated Physician Practices is amultiple site organization consisting of ambulatory clinics and hospital sitesin [place], [place], [place] and [place]. This disclosure is being madepursuant to the Care Everywhere program and may not contain all information available regarding this patient. 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
--- OUTSIDE RECORDS SUMMARY | 2025-02-15 14:00 | XMS_ITS | Clinical Summary ---
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 Gender Identity Not on file Sexual Orientation [...] 11:17 AM CDT Height 161.3 cm (5' 3.5) 08/02/2013 12:48 PM CS T Body Mass Index 26.78 08/02/2013 12:48 PM PAVING INSPECTOR Plan of Treatment Health Maintenance Due Date Last Done Comments DTAP/TDAP/TD VACCINES (1 - Tdap) 09/02/1962 PNEUMOCOCCAL VACCINE 50+ YEARS (1 of 1 - PCV) 09/02/18 94 ZOSTER VACCINE (1 of 2) 09/02/1993 OSTEOPOROSIS SCREENING 09/02/2008 RSV VACCINE (60+ or ) (1 - 1-dose 75+ series) 09/02/2018 INFLUENZA VACCINE (#1) 2024 Medical Devices Implanted Type Area Corrugated Box Machine Operator Device Identifier Shelf Expiration Date Model / Serial / Lot Plate Rflxhbrd 1lvl 14mm [id number] - Sload 311 Implanted:Qty : 1 on 08/08/2013 by Sammy Jama MD at [facility] Plate Left: Spine Cervical Anterior [employer]- SPINE [id number] / LOAD 07-26-2013 STERILIZATION Screw Rh Sd Va 4.0x14mm [id number] - Sload 311 Implanted:Qty : 4 on 08/08/2013 by Sammy Jama MD at [facility] Screw Left: Spine Cervical Anterior [employer]- SPINE [id number] / LOAD 07-26-2013 STERILIZATION Sealant Floseal W/ Adptr 10ml [id number] - [id number] Implanted:Qty : 1 on 08/08/2013 by Sammy Jama MD at [facility] Sealant Left: Spine Cervical Anterior [employer]- BIOS[employer]ENCE 10/27/2014 [id number] / / [id number] Bio Avs C-Plug 4, Allowash Xg Sterilized Allograft Bio-Implants Implanted:Qty : 1 on 08/08/2013 by Sammy Jama MD at [facility] Spine Left: Spine Cervical Anterior [employer]- SPINE 11/26/2017 [id number] / / ID: [id number] Description:CERV 4 DEG /PLUG 7 MM. BROUGHT IN BY [employer]IA REP. Advance Directives For more information, please contact: [phone] Documents on File Type Date Recorded Patient Slot Key Person Expl anation Advance Directive POA 08/08/2013 10:57 AM Advance Directive POA * Full Code (Latest Code Status on File) Date Activated Date Inactivated Comments 08/08/2013 7:13 PM 08/09/2013 1:06 PM * Full Code Date Activated Date Inactivated Comments 08/08/2013 11:12 AM 08/08/2013 7:13 PM Care Teams Field Service Representative Relationship Specialty Start Date End Date Jacob Ladd MD [address] [place] [address] PCP - General Family Practice 12/10/13
== END 2025-02-15 13:58 | disposition home or self-care (01) ==
LOC: CHSIMG 13:58
PROVIDERS: PCP Family Medicine; Visit Provider Family Medicine
DX: Z12.31 Encounter for screening mammogram for malignant neoplasm of breast (principal)
CPT/HCPCS: 77063; 77067